=== PATIENT | male | born 1960 | race Caucasian/White ===

== ENCOUNTER 2016-09-01 10:34 | Inpatient (IN) | payer OTHER ==
[~2016-09-01] VITALS: Ht 177.8 cm; Wt 87.5 kg
[2016-09-01 18:30] VITALS: BP 123/90
[2016-09-01] MEDS ORDERED: HYDROCODONE/ACETAMINOPHEN 5-325 MG TABLET PO PRN (19:00)
[2016-09-01] MEDS ORDERED: ACETAMINOPHEN 325 MG TABLET PO PRN (19:00)
[2016-09-01] MEDS ORDERED: ONDANSETRON HCL 4 MG TABLET PO PRN (19:00)
[2016-09-01] MEDS ORDERED: DOCUSATE SODIUM 283 MG/5 ML MINI-ENEMA PR PRN (19:00)
[2016-09-01 19:02] VITALS: BP 123/90
[2016-09-01 22:00] VITALS: BP 113/61
[2016-09-01] MEDS: DOCUSATE SODIUM 100 MG CAPSULE PO SCH (22:02)
[2016-09-01] MEDS: ROSUVASTATIN CALCIUM 10 MG TABLET PO SCH (22:02)
[2016-09-01] MEDS: SENNA 187 MG TABLET PO SCH (22:02)
[2016-09-01] MEDS: HYDROCODONE/ACETAMINOPHEN 5-325 MG TABLET PO PRN (22:03)
[2016-09-01] MEDS: TraZODone HCL 50 MG TABLET PO SCH (22:03)
[2016-09-01] MEDS: FAMOTIDINE 20 MG TABLET PO SCH (22:03)
[2016-09-01] MEDS: METOPROLOL TARTRATE 25 MG TABLET PO SCH (22:03)
[2016-09-01] MEDS: DEXAMETHASONE 4 MG TABLET PO SCH (23:45)
[2016-09-01 23:59] VITALS: BP 136/84
[2016-09-02 02:50] LABS: APPEARANCE,URINE CLEAR (CLEAR); GLUCOSE, URINE (UA) NEGATIVE (NEGATIVE); KETONES,URINE NEGATIVE (NEGATIVE); LEUKOCYTE ESTERASE ,URINE NEGATIVE (NEGATIVE); OCCULT BLOOD,URINE NEGATIVE (NEGATIVE); PH,URINE 5.5 (5.0-8.0); PROTEIN,URINE NEGATIVE (NEGATIVE)
[2016-09-02 03:02] LABS: RBC,URINE None Seen /HPF (0-2); WBC,URINE None Seen /HPF (0-5)
[2016-09-02] MEDS: DEXAMETHASONE 4 MG TABLET PO SCH ×4 (05:43→23:45)
[2016-09-02 07:00] LABS: EOSINOPHILS % (AUTO) 0.01 % (1.0-6.0); HEMATOCRIT 32.1 % (41-53); HEMOGLOBIN 10.6 g/dL (13.5-17.5); LYMPHOCYTES # (AUTO) 0.5 K/uL (1.0-4.8); LYMPHOCYTES % (AUTO) 5.4 % (22.0-44.0); MEAN CORPUSCULAR HEMOGLOBIN 33.4 pg (26.0-34.0); MEAN CORPUSCULAR VOLUME 101 fL (80-100); MONOCYTES # (AUTO) 0.3 K/uL (0.1-1.0); MONOCYTES % (AUTO) 3.1 % (2.0-9.0); NEUTROPHILS # (AUTO) 9.2 K/uL (1.8-7.7); PLATELET COUNT (AUTO) 186 K/uL (150-450); RED BLOOD CELL COUNT(AUTO) 3.17 MIL/uL (4.50-5.90); RED CELL DISTRIBUTION WIDTH 14.1 % (11.5-14.5); WHITE BLOOD COUNT (AUTO) 10.1 K/uL (4.5-11.0)
[2016-09-02 07:17] LABS: ALANINE AMINOTRANSFERASE 45 U/L (12-78); ALBUMIN 2.5 g/dL (3.4-5.0); ANION GAP 6 mmol/L (8-16); ASPARTATE AMINOTRANSFERASE 18 U/L (15-37); BILIRUBIN,TOTAL 0.5 mg/dL (0.1-1.0); CARBON DIOXIDE 31 mmol/L (22-29); CHLORIDE 103 mmol/L (98-107); CREATININE 0.87 mg/dL (0.60-1.30); GLOMERULAR FILTR. RATE CALC > 60 mL/min (>60); POTASSIUM 4.5 mmol/L (3.5-5.1); SODIUM SERUM 140 mmol/L (136-145); TOTAL PROTEIN, SERUM 5.5 g/dL (6.4-8.2); UREA NITROGEN, BLOOD 23 mg/dL (7-18)
[2016-09-02 07:25] VITALS: BP 128/80
[2016-09-02 07:25] LABS: NEUTROPHILS % (AUTO) 91.6 % (40.0-70.0); RBC MORPHOLOGY COMMENT ABNORMAL RBC MORPH
[2016-09-02] MEDS: METOPROLOL TARTRATE 25 MG TABLET PO SCH ×2 (08:37→20:25)
[2016-09-02] MEDS: BuPROPion HCL XL 150 MG ER TABLET PO SCH (08:37)
[2016-09-02] MEDS: LISINOPRIL 5 MG TABLET PO SCH (08:37)
[2016-09-02] MEDS: DOCUSATE SODIUM 100 MG CAPSULE PO SCH ×2 (08:37→20:24)
[2016-09-02] MEDS: FLUoxetine HCL 20 MG CAPSULE PO SCH (08:37)
[2016-09-02 15:00] VITALS: BP 120/73
[2016-09-02] MEDS: HYDROCODONE/ACETAMINOPHEN 5-325 MG TABLET PO PRN ×2 (15:06→23:45)
[2016-09-02 20:10] VITALS: BP 141/94
[2016-09-02] MEDS: ROSUVASTATIN CALCIUM 10 MG TABLET PO SCH (20:23)
[2016-09-02] MEDS: TraZODone HCL 50 MG TABLET PO SCH (20:24)
[2016-09-02] MEDS: FAMOTIDINE 20 MG TABLET PO SCH (20:24)
[2016-09-02] MEDS: SENNA 187 MG TABLET PO SCH (20:24)
[2016-09-02 23:45] VITALS: BP 129/85
[2016-09-03] MEDS: HYDROCODONE/ACETAMINOPHEN 5-325 MG TABLET PO PRN ×4 (05:22→23:55)
[2016-09-03] MEDS: DEXAMETHASONE 4 MG TABLET PO SCH ×4 (05:52→23:52)
[2016-09-03 07:40] VITALS: BP 144/73
[2016-09-03] MEDS: DOCUSATE SODIUM 100 MG CAPSULE PO SCH ×2 (08:18→20:07)
[2016-09-03] MEDS: METOPROLOL TARTRATE 25 MG TABLET PO SCH ×2 (08:18→20:07)
[2016-09-03] MEDS: LISINOPRIL 5 MG TABLET PO SCH (08:18)
[2016-09-03] MEDS: FLUoxetine HCL 20 MG CAPSULE PO SCH (08:18)
[2016-09-03] MEDS: BuPROPion HCL XL 150 MG ER TABLET PO SCH (08:18)
[2016-09-03 15:21] VITALS: BP 145/86
[2016-09-03] MEDS: FAMOTIDINE 20 MG TABLET PO SCH (20:07)
[2016-09-03] MEDS: ROSUVASTATIN CALCIUM 10 MG TABLET PO SCH (20:07)
[2016-09-03] MEDS: SENNA 187 MG TABLET PO SCH (20:07)
[2016-09-03 20:08] VITALS: BP 140/87
[2016-09-03 23:55] VITALS: BP 132/86
[2016-09-04] MEDS: HYDROCODONE/ACETAMINOPHEN 5-325 MG TABLET PO PRN ×2 (05:06→20:11)
[2016-09-04] MEDS: DEXAMETHASONE 4 MG TABLET PO SCH ×4 (05:42→23:53)
[2016-09-04 08:21] VITALS: BP 129/80
[2016-09-04 09:20] VITALS: BP 135/81
[2016-09-04] MEDS: DOCUSATE SODIUM 100 MG CAPSULE PO SCH ×2 (09:26→20:40)
[2016-09-04] MEDS: BuPROPion HCL XL 150 MG ER TABLET PO SCH (09:26)
[2016-09-04] MEDS: LISINOPRIL 5 MG TABLET PO SCH (09:26)
[2016-09-04] MEDS: FLUoxetine HCL 20 MG CAPSULE PO SCH (09:26)
[2016-09-04] MEDS: METOPROLOL TARTRATE 25 MG TABLET PO SCH ×2 (09:26→20:40)
[2016-09-04 16:07] VITALS: BP 129/82
[2016-09-04 20:11] VITALS: BP 112/78
[2016-09-04] MEDS: FAMOTIDINE 20 MG TABLET PO SCH (20:40)
[2016-09-04] MEDS: SENNA 187 MG TABLET PO SCH (20:40)
[2016-09-04] MEDS: ROSUVASTATIN CALCIUM 10 MG TABLET PO SCH (20:40)
[2016-09-05 00:09] VITALS: BP 122/89
[2016-09-05] MEDS: HYDROCODONE/ACETAMINOPHEN 5-325 MG TABLET PO PRN ×4 (00:09→20:26)
[2016-09-05] MEDS ORDERED: BUPR-93 PO (04:11)
[2016-09-05] MEDS ORDERED: ROSU20 PO (04:11)
[2016-09-05] MEDS ORDERED: LISI-662 PO (04:11)
[2016-09-05] MEDS ORDERED: FLUO-191 PO (04:11)
[2016-09-05] MEDS ORDERED: OMEG-12 PO (04:11)
[2016-09-05] MEDS ORDERED: ASA3 PO (04:11)
[2016-09-05] MEDS ORDERED: VITAD1000 PO (04:11)
[2016-09-05] MEDS ORDERED: FOLI1 PO (04:11)
[2016-09-05] MEDS ORDERED: METO25 PO (04:11)
[2016-09-05] MEDS ORDERED: NITR.4 SL (04:11)
[2016-09-05] MEDS ORDERED: LORA0.5T2 PO (04:11)
[2016-09-05] MEDS: DEXAMETHASONE 4 MG TABLET PO SCH ×3 (05:53→20:23)
[2016-09-05 07:00] VITALS: BP 148/93
[2016-09-05] MEDS: DOCUSATE SODIUM 100 MG CAPSULE PO SCH ×2 (08:09→20:22)
[2016-09-05] MEDS: METOPROLOL TARTRATE 25 MG TABLET PO SCH ×2 (08:09→20:22)
[2016-09-05] MEDS: LISINOPRIL 5 MG TABLET PO SCH (08:09)
[2016-09-05] MEDS: BuPROPion HCL XL 150 MG ER TABLET PO SCH (08:09)
[2016-09-05] MEDS: FLUoxetine HCL 20 MG CAPSULE PO SCH (08:09)
[2016-09-05 08:10] VITALS: BP 144/87
[2016-09-05 15:38] VITALS: BP 143/86
[2016-09-05] MEDS: GABAPENTIN 300 MG CAPSULE PO SCH (20:22)
[2016-09-05] MEDS: FAMOTIDINE 20 MG TABLET PO SCH (20:22)
[2016-09-05] MEDS: ROSUVASTATIN CALCIUM 10 MG TABLET PO SCH (20:22)
[2016-09-05] MEDS: SENNA 187 MG TABLET PO SCH (20:22)
[2016-09-05 23:22] VITALS: BP 118/77
[2016-09-06] MEDS: HYDROCODONE/ACETAMINOPHEN 5-325 MG TABLET PO PRN ×3 (05:27→23:30)
[2016-09-06 08:00] VITALS: BP 152/99
[2016-09-06] MEDS: BuPROPion HCL XL 150 MG ER TABLET PO SCH (08:47)
[2016-09-06] MEDS: METOPROLOL TARTRATE 25 MG TABLET PO SCH ×2 (08:47→20:15)
[2016-09-06] MEDS: DOCUSATE SODIUM 100 MG CAPSULE PO SCH ×2 (08:47→20:15)
[2016-09-06] MEDS: FLUoxetine HCL 20 MG CAPSULE PO SCH (08:47)
[2016-09-06] MEDS: DEXAMETHASONE 4 MG TABLET PO SCH ×3 (08:47→20:15)
[2016-09-06] MEDS: LISINOPRIL 5 MG TABLET PO SCH (08:47)
[2016-09-06] MEDS: ENOXAPARIN SODIUM 30 MG/0.3 ML PF SYRINGE SQ SCH (11:01)
[2016-09-06 15:13] VITALS: BP 122/72
[2016-09-06] MEDS: FAMOTIDINE 20 MG TABLET PO SCH (20:14)
[2016-09-06] MEDS: SENNA 187 MG TABLET PO SCH (20:15)
[2016-09-06] MEDS: ROSUVASTATIN CALCIUM 10 MG TABLET PO SCH (20:15)
[2016-09-06] MEDS: GABAPENTIN 300 MG CAPSULE PO SCH (20:15)
[2016-09-06 20:26] VITALS: BP 135/80
[2016-09-06 23:30] VITALS: BP 131/83
[2016-09-07] MEDS: HYDROCODONE/ACETAMINOPHEN 5-325 MG TABLET PO PRN ×2 (04:49→21:16)
[2016-09-07 07:13] VITALS: BP 137/81
[2016-09-07] MEDS: ENOXAPARIN SODIUM 30 MG/0.3 ML PF SYRINGE SQ SCH (07:51)
[2016-09-07] MEDS: DOCUSATE SODIUM 100 MG CAPSULE PO SCH ×2 (07:52→21:15)
[2016-09-07] MEDS: BuPROPion HCL XL 150 MG ER TABLET PO SCH (07:52)
[2016-09-07] MEDS: METOPROLOL TARTRATE 25 MG TABLET PO SCH ×2 (07:52→21:14)
[2016-09-07] MEDS: DEXAMETHASONE 4 MG TABLET PO SCH ×2 (07:52→21:13)
[2016-09-07] MEDS: FLUoxetine HCL 20 MG CAPSULE PO SCH (07:52)
[2016-09-07] MEDS: LISINOPRIL 5 MG TABLET PO SCH (07:52)
[2016-09-07 15:30] VITALS: BP 133/76
[2016-09-07] MEDS: GABAPENTIN 300 MG CAPSULE PO SCH (21:14)
[2016-09-07] MEDS: ROSUVASTATIN CALCIUM 10 MG TABLET PO SCH (21:14)
[2016-09-07 21:15] VITALS: BP_SYST 121; BP_DIAS 7; BP_DIAS 72
[2016-09-07] MEDS: FAMOTIDINE 20 MG TABLET PO SCH (21:15)
[2016-09-07] MEDS: SENNA 187 MG TABLET PO SCH (21:15)
[2016-09-07 23:44] VITALS: BP 124/74
[2016-09-08 07:09] VITALS: BP 138/79
[2016-09-08] MEDS ORDERED: DEXAMETHASONE 4 MG TABLET PO SCH (09:00)
[2016-09-08] MEDS: BuPROPion HCL XL 150 MG ER TABLET PO SCH (09:03)
[2016-09-08] MEDS: FLUoxetine HCL 20 MG CAPSULE PO SCH (09:03)
[2016-09-08] MEDS: METOPROLOL TARTRATE 25 MG TABLET PO SCH ×2 (09:03→20:53)
[2016-09-08] MEDS: DOCUSATE SODIUM 100 MG CAPSULE PO SCH ×2 (09:03→20:53)
[2016-09-08] MEDS: ENOXAPARIN SODIUM 30 MG/0.3 ML PF SYRINGE SQ SCH (09:03)
[2016-09-08] MEDS: LISINOPRIL 5 MG TABLET PO SCH (09:03)
[2016-09-08 15:51] VITALS: BP 122/78
[2016-09-08] MEDS: HYDROCODONE/ACETAMINOPHEN 5-325 MG TABLET PO PRN (16:04)
[2016-09-08 20:52] VITALS: BP 134/87
[2016-09-08] MEDS: GABAPENTIN 300 MG CAPSULE PO SCH (20:53)
[2016-09-08] MEDS: ROSUVASTATIN CALCIUM 10 MG TABLET PO SCH (20:53)
[2016-09-08] MEDS: SENNA 187 MG TABLET PO SCH (20:53)
[2016-09-08] MEDS: FAMOTIDINE 20 MG TABLET PO SCH (20:53)
[2016-09-09 00:16] VITALS: BP 125/72
[2016-09-09] MEDS: HYDROCODONE/ACETAMINOPHEN 5-325 MG TABLET PO PRN ×3 (04:29→19:13)
[2016-09-09 07:03] VITALS: BP 149/88
[2016-09-09] MEDS: ENOXAPARIN SODIUM 30 MG/0.3 ML PF SYRINGE SQ SCH (08:11)
[2016-09-09] MEDS: BuPROPion HCL XL 150 MG ER TABLET PO SCH (08:11)
[2016-09-09] MEDS: DOCUSATE SODIUM 100 MG CAPSULE PO SCH ×2 (08:12→20:46)
[2016-09-09] MEDS: METOPROLOL TARTRATE 25 MG TABLET PO SCH ×2 (08:12→20:46)
[2016-09-09] MEDS: FLUoxetine HCL 20 MG CAPSULE PO SCH (08:12)
[2016-09-09] MEDS: LISINOPRIL 5 MG TABLET PO SCH (08:12)
[2016-09-09 15:20] VITALS: BP 100/62
[2016-09-09 20:45] VITALS: BP 120/62
[2016-09-09] MEDS: ROSUVASTATIN CALCIUM 10 MG TABLET PO SCH (20:46)
[2016-09-09] MEDS: GABAPENTIN 300 MG CAPSULE PO SCH (20:46)
[2016-09-09] MEDS: FAMOTIDINE 20 MG TABLET PO SCH (20:46)
[2016-09-09] MEDS: SENNA 187 MG TABLET PO SCH (20:46)
[2016-09-09 23:47] VITALS: BP 114/72
[2016-09-10 08:14] VITALS: BP 118/80
[2016-09-10] MEDS: HYDROCODONE/ACETAMINOPHEN 5-325 MG TABLET PO PRN ×2 (08:14→20:20)
[2016-09-10] MEDS: ENOXAPARIN SODIUM 30 MG/0.3 ML PF SYRINGE SQ SCH (08:15)
[2016-09-10] MEDS: FLUoxetine HCL 20 MG CAPSULE PO SCH (08:15)
[2016-09-10] MEDS: LISINOPRIL 5 MG TABLET PO SCH (08:15)
[2016-09-10] MEDS: BuPROPion HCL XL 150 MG ER TABLET PO SCH (08:15)
[2016-09-10] MEDS: METOPROLOL TARTRATE 25 MG TABLET PO SCH ×2 (08:15→20:16)
[2016-09-10] MEDS: DOCUSATE SODIUM 100 MG CAPSULE PO SCH ×2 (08:15→20:16)
[2016-09-10 08:41] VITALS: BP 118/80
[2016-09-10 16:01] VITALS: BP 101/63
[2016-09-10] MEDS: ROSUVASTATIN CALCIUM 10 MG TABLET PO SCH (20:15)
[2016-09-10] MEDS: FAMOTIDINE 20 MG TABLET PO SCH (20:16)
[2016-09-10] MEDS: GABAPENTIN 300 MG CAPSULE PO SCH (20:16)
[2016-09-10] MEDS: SENNA 187 MG TABLET PO SCH (20:16)
[2016-09-10 20:20] VITALS: BP 118/68
[2016-09-10 23:39] VITALS: BP 103/63
[2016-09-11 07:00] VITALS: BP 103/66
[2016-09-11] MEDS: LISINOPRIL 5 MG TABLET PO SCH (08:30)
[2016-09-11] MEDS: BuPROPion HCL XL 150 MG ER TABLET PO SCH (08:30)
[2016-09-11] MEDS: FLUoxetine HCL 20 MG CAPSULE PO SCH (08:30)
[2016-09-11] MEDS: ENOXAPARIN SODIUM 30 MG/0.3 ML PF SYRINGE SQ SCH (08:30)
[2016-09-11] MEDS: DOCUSATE SODIUM 100 MG CAPSULE PO SCH ×2 (08:30→21:01)
[2016-09-11] MEDS: METOPROLOL TARTRATE 25 MG TABLET PO SCH ×2 (08:31→21:01)
[2016-09-11 16:22] VITALS: BP 132/83
[2016-09-11 21:00] VITALS: BP 112/72
[2016-09-11] MEDS: HYDROCODONE/ACETAMINOPHEN 5-325 MG TABLET PO PRN (21:01)
[2016-09-11] MEDS: SENNA 187 MG TABLET PO SCH (21:01)
[2016-09-11] MEDS: GABAPENTIN 300 MG CAPSULE PO SCH (21:01)
[2016-09-11] MEDS: ROSUVASTATIN CALCIUM 10 MG TABLET PO SCH (21:01)
[2016-09-11] MEDS: FAMOTIDINE 20 MG TABLET PO SCH (21:01)
[2016-09-12 00:14] VITALS: BP 115/75
[2016-09-12] MEDS: ENOXAPARIN SODIUM 30 MG/0.3 ML PF SYRINGE SQ SCH (07:46)
[2016-09-12] MEDS: DOCUSATE SODIUM 100 MG CAPSULE PO SCH ×2 (07:47→20:12)
[2016-09-12] MEDS: BuPROPion HCL XL 150 MG ER TABLET PO SCH (07:47)
[2016-09-12] MEDS: FLUoxetine HCL 20 MG CAPSULE PO SCH (07:47)
[2016-09-12] MEDS: LISINOPRIL 5 MG TABLET PO SCH (07:47)
[2016-09-12] MEDS: METOPROLOL TARTRATE 25 MG TABLET PO SCH ×2 (07:47→20:12)
[2016-09-12 07:48] VITALS: BP 116/65
[2016-09-12] MEDS: HYDROCODONE/ACETAMINOPHEN 5-325 MG TABLET PO PRN ×3 (07:48→20:14)
[2016-09-12 15:38] VITALS: BP 108/57
[2016-09-12 20:10] VITALS: BP 108/69
[2016-09-12] MEDS: SENNA 187 MG TABLET PO SCH (20:11)
[2016-09-12] MEDS: FAMOTIDINE 20 MG TABLET PO SCH (20:12)
[2016-09-12] MEDS: ROSUVASTATIN CALCIUM 10 MG TABLET PO SCH (20:12)
[2016-09-12] MEDS: GABAPENTIN 300 MG CAPSULE PO SCH (20:13)
[2016-09-13 00:52] VITALS: BP 127/56
[2016-09-13 07:09] VITALS: BP 110/67
[2016-09-13 07:10] LABS: BASOPHILS % (AUTO) 0.3 % (0.0-2.0); EOSINOPHILS % (AUTO) 0.4 % (1.0-6.0); HEMATOCRIT 31.4 % (41-53); HEMOGLOBIN 10.4 g/dL (13.5-17.5); LYMPHOCYTES # (AUTO) 0.8 K/uL (1.0-4.8); LYMPHOCYTES % (AUTO) 11.6 % (22.0-44.0); MEAN CORPUSCULAR HEMOGLOBIN 33.3 pg (26.0-34.0); MEAN CORPUSCULAR HGB CONC 33.1 G/dL (31.0-37.0); MEAN CORPUSCULAR VOLUME 101 fL (80-100); MONOCYTES # (AUTO) 0.5 K/uL (0.1-1.0); NEUTROPHILS # (AUTO) 5.4 K/uL (1.8-7.7); NEUTROPHILS % (AUTO) 79.7 % (40.0-70.0); PLATELET COUNT (AUTO) 233 K/uL (150-450); RED BLOOD CELL COUNT(AUTO) 3.12 MIL/uL (4.50-5.90); WHITE BLOOD COUNT (AUTO) 6.8 K/uL (4.5-11.0)
[2016-09-13 07:17] LABS: ANION GAP 7 mmol/L (8-16); CALCIUM, TOTAL 8.2 mg/dL (8.8-10.5); CARBON DIOXIDE 30 mmol/L (22-29); CHLORIDE 98 mmol/L (98-107); CREATININE 0.77 mg/dL (0.60-1.30); GLOMERULAR FILTR. RATE CALC > 60 mL/min (>60); POTASSIUM 4.2 mmol/L (3.5-5.1); SODIUM SERUM 135 mmol/L (136-145); UREA NITROGEN, BLOOD 14 mg/dL (7-18)
[2016-09-13] MEDS: LISINOPRIL 5 MG TABLET PO SCH (08:01)
[2016-09-13] MEDS: DOCUSATE SODIUM 100 MG CAPSULE PO SCH ×2 (08:01→20:29)
[2016-09-13] MEDS: FLUoxetine HCL 20 MG CAPSULE PO SCH (08:02)
[2016-09-13] MEDS: METOPROLOL TARTRATE 25 MG TABLET PO SCH ×2 (08:02→20:29)
[2016-09-13] MEDS: ENOXAPARIN SODIUM 30 MG/0.3 ML PF SYRINGE SQ SCH (08:02)
[2016-09-13] MEDS: BuPROPion HCL XL 150 MG ER TABLET PO SCH (08:02)
[2016-09-13 09:50] LABS: RBC MORPHOLOGY COMMENT ABNORMAL RBC MORPH
[2016-09-13 15:53] VITALS: BP 112/57
[2016-09-13] MEDS: FAMOTIDINE 20 MG TABLET PO SCH (20:28)
[2016-09-13] MEDS: GABAPENTIN 300 MG CAPSULE PO SCH (20:28)
[2016-09-13] MEDS: ROSUVASTATIN CALCIUM 10 MG TABLET PO SCH (20:28)
[2016-09-13] MEDS: SENNA 187 MG TABLET PO SCH (20:28)
[2016-09-13 20:33] VITALS: BP 103/59
[2016-09-13 23:32] VITALS: BP 98/54
[2016-09-14] MEDS ORDERED: DSS100 PO (03:14)
[2016-09-14] MEDS ORDERED: LISI-660 PO (03:22)
[2016-09-14] MEDS ORDERED: HYDR-309 PO (03:22)
[2016-09-14] MEDS ORDERED: GABA-531 PO (03:22)
[2016-09-14] MEDS ORDERED: ROSU10 PO (03:22)
[2016-09-14] MEDS ORDERED: FAMO20 PO (03:22)
[2016-09-14 04:00] VITALS: BP 113/76
[2016-09-14] MEDS: DOCUSATE SODIUM 100 MG CAPSULE PO SCH ×2 (08:02→21:27)
[2016-09-14] MEDS: LISINOPRIL 5 MG TABLET PO SCH (08:02)
[2016-09-14] MEDS: ENOXAPARIN SODIUM 30 MG/0.3 ML PF SYRINGE SQ SCH (08:02)
[2016-09-14] MEDS: METOPROLOL TARTRATE 25 MG TABLET PO SCH ×2 (08:02→21:26)
[2016-09-14] MEDS: FLUoxetine HCL 20 MG CAPSULE PO SCH (08:02)
[2016-09-14] MEDS: BuPROPion HCL XL 150 MG ER TABLET PO SCH (08:02)
[2016-09-14 09:38] VITALS: BP 112/68
[2016-09-14 15:15] VITALS: BP 100/63
[2016-09-14] MEDS: GABAPENTIN 300 MG CAPSULE PO SCH (21:26)
[2016-09-14] MEDS: ROSUVASTATIN CALCIUM 10 MG TABLET PO SCH (21:26)
[2016-09-14] MEDS: FAMOTIDINE 20 MG TABLET PO SCH (21:26)
[2016-09-14] MEDS: SENNA 187 MG TABLET PO SCH (21:26)
[2016-09-14 21:27] VITALS: BP 114/63
[2016-09-14 23:54] VITALS: BP 109/62
[2016-09-15 07:25] VITALS: BP 103/69
[2016-09-15] MEDS: LISINOPRIL 5 MG TABLET PO SCH (08:36)
[2016-09-15] MEDS: DOCUSATE SODIUM 100 MG CAPSULE PO SCH (08:36)
[2016-09-15] MEDS: BuPROPion HCL XL 150 MG ER TABLET PO SCH (08:36)
[2016-09-15] MEDS: FLUoxetine HCL 20 MG CAPSULE PO SCH (08:37)
[2016-09-15] MEDS: METOPROLOL TARTRATE 25 MG TABLET PO SCH (08:37)
[2016-09-15] MEDS: ENOXAPARIN SODIUM 30 MG/0.3 ML PF SYRINGE SQ SCH (08:37)
[2016-09-15] MEDS ORDERED: ENOX30DI5 SQ (11:28)
[2016-09-15 15:00] VITALS: BP 110/62
== END 2016-09-15 17:30 | disposition home or self-care (01) | DRG 552 ==
LOC: 2WR 18:22
DX: M50.021 Cervical disc disorder at C4-C5 level with myelopathy (principal); G95.9 Disease of spinal cord, unspecified; E44.0 Moderate protein-calorie malnutrition; M48.02 Spinal stenosis, cervical region; G51.0 Bell's palsy; F32.9 Major depressive disorder, single episode, unspecified; I10 Essential (primary) hypertension; I25.10 Atherosclerotic heart disease of native coronary artery without angina pectoris; M54.10 Radiculopathy, site unspecified; D64.9 Anemia, unspecified; M62.58 Muscle wasting and atrophy, not elsewhere classified, other site; Z79.899 Other long term (current) drug therapy; Z82.49 Family history of ischemic heart disease and other diseases of the circulatory system
CPT/HCPCS: 71020; 87070; 87081; 87147; 87205; 93970; 97110; 97112; 97116; 97163; 97167; 97530; 97535; 97760; 99366; J1650; J8540

== ENCOUNTER 2016-11-30 17:15 | Inpatient (IN) | payer OTHER ==
[~2016-11-30] VITALS: Ht 175.3 cm; Wt 77.1 kg
[~2016-11-30 17:15] MED LIST: ASA3 PO; AUD NEB; BISA10S PR; BUPR-93 PO; CHOL20004 PO; DSS100 PO; ENOX30DI5 SQ; FAMO20 PO; FLUO-191 PO; FOLI1 PO; GABA-531 PO; HYDR-309 PO; IPRNEB NEB; LISI-660 PO; LORA0.5T2 PO; METH125V14 IVP; METO25 PO; MOM30 PO; MORP2CAR IV; OMEG-112 PO; ONDA4 PO; PANT40I IV; ROSU10 PO
[2016-11-30 17:30] VITALS: BP 121/66
[2016-11-30] MEDS ORDERED: ONDANSETRON HCL 4 MG TABLET PO PRN (18:45)
[2016-11-30] MEDS ORDERED: ALBUTEROL SULFATE 2.5 MG/0.5 ML NEB SOLUTION NEB PRN (18:45)
[2016-11-30] MEDS ORDERED: ACETAMINOPHEN 325 MG TABLET PO PRN ×2 (18:45)
[2016-11-30] MEDS ORDERED: MORPHINE SULFATE 4 MG/ML SYRINGE IVP PRN (18:45)
[2016-11-30] MEDS ORDERED: DOCUSATE SODIUM 283 MG/5 ML MINI-ENEMA PR PRN (18:45)
[2016-11-30] MEDS ORDERED: BISACODYL 10 MG RECTAL RECTAL SUPPOSITORY PR PRN (18:45)
[2016-11-30] MEDS ORDERED: IPRATROPIUM BROMIDE 0.5 MG/2.5 ML NEB SOLUTION NEB PRN (18:45)
[2016-11-30] MEDS ORDERED: TEMAZEPAM 15 MG CAPSULE PO PRN (18:45)
[2016-11-30] MEDS ORDERED: LORazepam 0.5 MG TABLET PO PRN (18:45)
[2016-11-30] MEDS ORDERED: MAGNESIUM HYDROXIDE SUSPENSION 30 ML UDCUP PO PRN (18:45)
[2016-11-30] MEDS ORDERED: LACTULOSE 20 GM/30 ML SOLUTION UDCUP PO PRN (19:00)
[2016-11-30 20:05] LABS: APPEARANCE,URINE CLEAR (CLEAR); GLUCOSE, URINE (UA) NEGATIVE (NEGATIVE); KETONES,URINE NEGATIVE (NEGATIVE); LEUKOCYTE ESTERASE ,URINE NEGATIVE (NEGATIVE); OCCULT BLOOD,URINE NEGATIVE (NEGATIVE); PROTEIN,URINE NEGATIVE (NEGATIVE)
[2016-11-30 20:18] LABS: RBC,URINE None Seen /HPF (0-2); WBC,URINE 0-2 /HPF (0-5)
[2016-11-30 20:23] VITALS: BP 122/83
[2016-11-30 20:27] VITALS: BP 122/83
[2016-11-30] MEDS: DOCUSATE SODIUM 100 MG CAPSULE PO SCH (20:47)
[2016-11-30] MEDS: METOPROLOL TARTRATE 25 MG TABLET PO SCH (20:50)
[2016-11-30] MEDS: GABAPENTIN 300 MG CAPSULE PO SCH (20:50)
[2016-11-30] MEDS: SENNA 187 MG TABLET PO SCH (20:50)
[2016-11-30] MEDS: ROSUVASTATIN CALCIUM 10 MG TABLET PO SCH (20:50)
[2016-11-30] MEDS: FAMOTIDINE 20 MG TABLET PO SCH (20:50)
[2016-11-30] MEDS: BUDESONIDE 0.5 MG/2 ML NEB SOLUTION NEB SCH (22:14)
[2016-11-30] MEDS: 0.9% SODIUM CHLORIDE 10 ML SYRINGE IVP SCH (23:08)
[2016-11-30 23:36] VITALS: BP 126/81
[2016-12-01] VITALS: BP 126/81
[2016-12-01 06:48] LABS: BASOPHILS % (AUTO) 0.2 % (0.0-2.0); EOSINOPHILS % (AUTO) 0.2 % (1.0-6.0); HEMATOCRIT 32.8 % (41-53); HEMOGLOBIN 10.9 g/dL (13.5-17.5); LYMPHOCYTES # (AUTO) 3.9 K/uL (1.0-4.8); LYMPHOCYTES % (AUTO) 32.1 % (22.0-44.0); MEAN CORPUSCULAR HEMOGLOBIN 29.8 pg (26.0-34.0); MEAN CORPUSCULAR HGB CONC 33.1 G/dL (31.0-37.0); MEAN CORPUSCULAR VOLUME 90 fL (80-100); MONOCYTES % (AUTO) 8.5 % (2.0-9.0); NEUTROPHILS # (AUTO) 7.2 K/uL (1.8-7.7); PLATELET COUNT (AUTO) 409 K/uL (150-450); RED BLOOD CELL COUNT(AUTO) 3.65 MIL/uL (4.50-5.90); RED CELL DISTRIBUTION WIDTH 21.4 % (11.5-14.5); WHITE BLOOD COUNT (AUTO) 12.2 K/uL (4.5-11.0)
[2016-12-01 07:06] LABS: ALANINE AMINOTRANSFERASE 33 U/L (12-78); ALBUMIN 2.9 g/dL (3.4-5.0); ANION GAP 5 mmol/L (8-16); ASPARTATE AMINOTRANSFERASE 14 U/L (15-37); BILIRUBIN,TOTAL 0.2 mg/dL (0.1-1.0); CARBON DIOXIDE 32 mmol/L (22-29); CHLORIDE 102 mmol/L (98-107); GLOMERULAR FILTR. RATE CALC > 60 mL/min (>60); POTASSIUM 4.1 mmol/L (3.5-5.1); SODIUM SERUM 139 mmol/L (136-145); TOTAL PROTEIN, SERUM 5.7 g/dL (6.4-8.2); UREA NITROGEN, BLOOD 17 mg/dL (7-18)
[2016-12-01 07:11] VITALS: BP 113/69
[2016-12-01] MEDS: BUDESONIDE 0.5 MG/2 ML NEB SOLUTION NEB SCH ×2 (08:22→21:11)
[2016-12-01] MEDS: ENOXAPARIN SODIUM 30 MG/0.3 ML PF SYRINGE SQ SCH (08:30)
[2016-12-01] MEDS: FOLIC ACID 1 MG TABLET PO SCH (08:30)
[2016-12-01] MEDS: DOCUSATE SODIUM 100 MG CAPSULE PO SCH ×2 (08:30→20:11)
[2016-12-01] MEDS: BuPROPion HCL XL 150 MG ER TABLET PO SCH (08:30)
[2016-12-01] MEDS: 0.9% SODIUM CHLORIDE 10 ML SYRINGE IVP SCH ×3 (08:30→23:10)
[2016-12-01] MEDS: FLUoxetine HCL 20 MG CAPSULE PO SCH (08:31)
[2016-12-01] MEDS: LISINOPRIL 5 MG TABLET PO SCH (08:31)
[2016-12-01] MEDS: METOPROLOL TARTRATE 25 MG TABLET PO SCH ×2 (08:31→20:11)
[2016-12-01] MEDS: PANTOPRAZOLE SODIUM 40 MG DR TABLET PO SCH (08:31)
[2016-12-01] MEDS: PredniSONE 10 MG TABLET PO SCH (08:31)
[2016-12-01] MEDS: CHOLECALCIFEROL (VIT D3) 1,000 UNITS TABLET PO SCH (08:31)
[2016-12-01 09:10] LABS: RBC MORPHOLOGY COMMENT ABNORMAL RBC MORPH
[2016-12-01 15:29] VITALS: BP 117/75
[2016-12-01 20:01] VITALS: BP 107/63
[2016-12-01] MEDS: GABAPENTIN 300 MG CAPSULE PO SCH (20:11)
[2016-12-01] MEDS: SENNA 187 MG TABLET PO SCH (20:11)
[2016-12-01] MEDS: ROSUVASTATIN CALCIUM 10 MG TABLET PO SCH (20:11)
[2016-12-01] MEDS: FAMOTIDINE 20 MG TABLET PO SCH (20:11)
[2016-12-01] MEDS: OXYGEN THERAPY IH SCH (21:28)
[2016-12-01 23:20] VITALS: BP 114/68
[2016-12-02 07:05] VITALS: BP 118/72
[2016-12-02] MEDS: BUDESONIDE 0.5 MG/2 ML NEB SOLUTION NEB SCH ×2 (08:13→21:21)
[2016-12-02] MEDS: OXYGEN THERAPY IH SCH ×2 (08:15→21:14)
[2016-12-02] MEDS: DOCUSATE SODIUM 100 MG CAPSULE PO SCH ×2 (08:16→21:14)
[2016-12-02] MEDS: BuPROPion HCL XL 150 MG ER TABLET PO SCH (08:16)
[2016-12-02] MEDS: FOLIC ACID 1 MG TABLET PO SCH (08:16)
[2016-12-02] MEDS: FLUoxetine HCL 20 MG CAPSULE PO SCH (08:16)
[2016-12-02] MEDS: LISINOPRIL 5 MG TABLET PO SCH (08:16)
[2016-12-02] MEDS: CHOLECALCIFEROL (VIT D3) 1,000 UNITS TABLET PO SCH (08:16)
[2016-12-02] MEDS: PANTOPRAZOLE SODIUM 40 MG DR TABLET PO SCH (08:16)
[2016-12-02] MEDS: PredniSONE 10 MG TABLET PO SCH (08:16)
[2016-12-02] MEDS: 0.9% SODIUM CHLORIDE 10 ML SYRINGE IVP SCH ×3 (08:16→23:20)
[2016-12-02] MEDS: METOPROLOL TARTRATE 25 MG TABLET PO SCH ×2 (08:17→21:14)
[2016-12-02] MEDS: ENOXAPARIN SODIUM 30 MG/0.3 ML PF SYRINGE SQ SCH (08:17)
[2016-12-02 15:36] VITALS: BP 112/52
[2016-12-02 21:12] VITALS: BP 104/64
[2016-12-02] MEDS: FAMOTIDINE 20 MG TABLET PO SCH (21:14)
[2016-12-02] MEDS: SENNA 187 MG TABLET PO SCH (21:14)
[2016-12-02] MEDS: ROSUVASTATIN CALCIUM 10 MG TABLET PO SCH (21:14)
[2016-12-02] MEDS: GABAPENTIN 300 MG CAPSULE PO SCH (21:14)
[2016-12-02 23:47] VITALS: BP 103/71
[2016-12-03 07:39] VITALS: BP 117/77
[2016-12-03] MEDS: DOCUSATE SODIUM 100 MG CAPSULE PO SCH ×2 (07:59→20:46)
[2016-12-03] MEDS: METOPROLOL TARTRATE 25 MG TABLET PO SCH ×2 (07:59→20:45)
[2016-12-03] MEDS: LISINOPRIL 5 MG TABLET PO SCH (07:59)
[2016-12-03] MEDS: PredniSONE 10 MG TABLET PO SCH (07:59)
[2016-12-03] MEDS: FLUoxetine HCL 20 MG CAPSULE PO SCH (07:59)
[2016-12-03] MEDS: ENOXAPARIN SODIUM 30 MG/0.3 ML PF SYRINGE SQ SCH (08:00)
[2016-12-03] MEDS: PANTOPRAZOLE SODIUM 40 MG DR TABLET PO SCH (08:00)
[2016-12-03] MEDS: FOLIC ACID 1 MG TABLET PO SCH (08:00)
[2016-12-03] MEDS: BuPROPion HCL XL 150 MG ER TABLET PO SCH (08:00)
[2016-12-03] MEDS: OXYGEN THERAPY IH SCH ×2 (09:08→20:00)
[2016-12-03] MEDS: 0.9% SODIUM CHLORIDE 10 ML SYRINGE IVP SCH ×3 (09:09→23:22)
[2016-12-03] MEDS: BUDESONIDE 0.5 MG/2 ML NEB SOLUTION NEB SCH ×2 (09:17→21:15)
[2016-12-03] MEDS: CHOLECALCIFEROL (VIT D3) 1,000 UNITS TABLET PO SCH (10:20)
[2016-12-03 15:00] VITALS: BP 108/65
[2016-12-03] MEDS: GABAPENTIN 300 MG CAPSULE PO SCH (20:45)
[2016-12-03] MEDS: SENNA 187 MG TABLET PO SCH (20:45)
[2016-12-03] MEDS: FAMOTIDINE 20 MG TABLET PO SCH (20:45)
[2016-12-03] MEDS: ROSUVASTATIN CALCIUM 10 MG TABLET PO SCH (20:46)
[2016-12-03 23:25] VITALS: BP 116/75
[2016-12-04] MEDS: OXYGEN THERAPY IH SCH ×2 (07:26→20:34)
[2016-12-04] MEDS: BUDESONIDE 0.5 MG/2 ML NEB SOLUTION NEB SCH ×2 (07:27→21:57)
[2016-12-04 08:00] VITALS: BP 114/75
[2016-12-04] MEDS: ENOXAPARIN SODIUM 30 MG/0.3 ML PF SYRINGE SQ SCH (08:07)
[2016-12-04] MEDS: PredniSONE 10 MG TABLET PO SCH (08:07)
[2016-12-04] MEDS: LISINOPRIL 5 MG TABLET PO SCH (08:07)
[2016-12-04] MEDS: FOLIC ACID 1 MG TABLET PO SCH (08:07)
[2016-12-04] MEDS: FLUoxetine HCL 20 MG CAPSULE PO SCH (08:07)
[2016-12-04] MEDS: CHOLECALCIFEROL (VIT D3) 1,000 UNITS TABLET PO SCH (08:07)
[2016-12-04] MEDS: METOPROLOL TARTRATE 25 MG TABLET PO SCH ×2 (08:08→20:34)
[2016-12-04] MEDS: DOCUSATE SODIUM 100 MG CAPSULE PO SCH ×2 (08:08→20:34)
[2016-12-04] MEDS: PANTOPRAZOLE SODIUM 40 MG DR TABLET PO SCH (08:08)
[2016-12-04] MEDS: BuPROPion HCL XL 150 MG ER TABLET PO SCH (08:08)
[2016-12-04] MEDS: 0.9% SODIUM CHLORIDE 10 ML SYRINGE IVP SCH ×3 (11:46→23:16)
[2016-12-04 15:37] VITALS: BP 113/67
[2016-12-04 20:33] VITALS: BP 130/72
[2016-12-04] MEDS: GABAPENTIN 300 MG CAPSULE PO SCH (20:34)
[2016-12-04] MEDS: SENNA 187 MG TABLET PO SCH (20:34)
[2016-12-04] MEDS: ROSUVASTATIN CALCIUM 10 MG TABLET PO SCH (20:34)
[2016-12-04] MEDS: FAMOTIDINE 20 MG TABLET PO SCH (20:34)
[2016-12-04 23:45] VITALS: BP 111/76
[2016-12-05] MEDS: BUDESONIDE 0.5 MG/2 ML NEB SOLUTION NEB SCH ×2 (07:35→21:16)
[2016-12-05 07:38] VITALS: BP 120/90
[2016-12-05] MEDS: OXYGEN THERAPY IH SCH ×2 (08:00→20:00)
[2016-12-05] MEDS: 0.9% SODIUM CHLORIDE 10 ML SYRINGE IVP SCH ×3 (09:26→23:12)
[2016-12-05] MEDS: DOCUSATE SODIUM 100 MG CAPSULE PO SCH ×2 (09:27→20:23)
[2016-12-05] MEDS: PANTOPRAZOLE SODIUM 40 MG DR TABLET PO SCH (09:27)
[2016-12-05] MEDS: PredniSONE 10 MG TABLET PO SCH (09:27)
[2016-12-05] MEDS: LISINOPRIL 5 MG TABLET PO SCH (09:27)
[2016-12-05] MEDS: CHOLECALCIFEROL (VIT D3) 1,000 UNITS TABLET PO SCH (09:27)
[2016-12-05] MEDS: BuPROPion HCL XL 150 MG ER TABLET PO SCH (09:27)
[2016-12-05] MEDS: METOPROLOL TARTRATE 25 MG TABLET PO SCH ×2 (09:27→20:23)
[2016-12-05] MEDS: ENOXAPARIN SODIUM 30 MG/0.3 ML PF SYRINGE SQ SCH (09:27)
[2016-12-05] MEDS: FOLIC ACID 1 MG TABLET PO SCH (09:27)
[2016-12-05] MEDS: FLUoxetine HCL 20 MG CAPSULE PO SCH (09:27)
[2016-12-05 16:18] VITALS: BP 103/68
[2016-12-05 20:21] VITALS: BP 118/69
[2016-12-05] MEDS: SENNA 187 MG TABLET PO SCH (20:23)
[2016-12-05] MEDS: FAMOTIDINE 20 MG TABLET PO SCH (20:23)
[2016-12-05] MEDS: ROSUVASTATIN CALCIUM 10 MG TABLET PO SCH (20:23)
[2016-12-05] MEDS: GABAPENTIN 300 MG CAPSULE PO SCH (20:23)
[2016-12-05] MEDS: ASPIRIN 325 MG EC TABLET PO SCH (20:23)
[2016-12-05 23:15] VITALS: BP 122/82
[2016-12-06] MEDS: BUDESONIDE 0.5 MG/2 ML NEB SOLUTION NEB SCH ×2 (07:00→20:15)
[2016-12-06 07:25] VITALS: BP 126/85
[2016-12-06] MEDS: OXYGEN THERAPY IH SCH ×2 (08:00→20:00)
[2016-12-06] MEDS: PredniSONE 10 MG TABLET PO SCH (08:01)
[2016-12-06] MEDS: DOCUSATE SODIUM 100 MG CAPSULE PO SCH ×2 (08:01→20:11)
[2016-12-06] MEDS: CHOLECALCIFEROL (VIT D3) 1,000 UNITS TABLET PO SCH (08:02)
[2016-12-06] MEDS: METOPROLOL TARTRATE 25 MG TABLET PO SCH ×2 (08:02→20:11)
[2016-12-06] MEDS: PANTOPRAZOLE SODIUM 40 MG DR TABLET PO SCH (08:02)
[2016-12-06] MEDS: FLUoxetine HCL 20 MG CAPSULE PO SCH (08:02)
[2016-12-06] MEDS: FOLIC ACID 1 MG TABLET PO SCH (08:02)
[2016-12-06] MEDS: BuPROPion HCL XL 150 MG ER TABLET PO SCH (08:03)
[2016-12-06] MEDS: LISINOPRIL 5 MG TABLET PO SCH (08:03)
[2016-12-06] MEDS: ENOXAPARIN SODIUM 30 MG/0.3 ML PF SYRINGE SQ SCH (08:03)
[2016-12-06] MEDS: 0.9% SODIUM CHLORIDE 10 ML SYRINGE IVP SCH ×3 (08:06→23:09)
[2016-12-06 15:04] VITALS: BP 109/69
[2016-12-06] MEDS: GABAPENTIN 300 MG CAPSULE PO SCH (20:10)
[2016-12-06] MEDS: ASPIRIN 325 MG EC TABLET PO SCH (20:11)
[2016-12-06] MEDS: FAMOTIDINE 20 MG TABLET PO SCH (20:11)
[2016-12-06] MEDS: SENNA 187 MG TABLET PO SCH (20:11)
[2016-12-06] MEDS: ROSUVASTATIN CALCIUM 10 MG TABLET PO SCH (20:11)
[2016-12-06 23:13] VITALS: BP 121/75
[2016-12-07 07:04] LABS: BASOPHILS % (AUTO) 0.2 % (0.0-2.0); EOSINOPHILS % (AUTO) 0.2 % (1.0-6.0); HEMATOCRIT 31.9 % (41-53); HEMOGLOBIN 10.6 g/dL (13.5-17.5); LYMPHOCYTES # (AUTO) 4.4 K/uL (1.0-4.8); MEAN CORPUSCULAR HEMOGLOBIN 30.1 pg (26.0-34.0); MEAN CORPUSCULAR HGB CONC 33.2 G/dL (31.0-37.0); MEAN CORPUSCULAR VOLUME 90 fL (80-100); MONOCYTES % (AUTO) 6.7 % (2.0-9.0); NEUTROPHILS # (AUTO) 9.2 K/uL (1.8-7.7); NEUTROPHILS % (AUTO) 62.9 % (40.0-70.0); PLATELET COUNT (AUTO) 250 K/uL (150-450); RED BLOOD CELL COUNT(AUTO) 3.53 MIL/uL (4.50-5.90); WHITE BLOOD COUNT (AUTO) 14.6 K/uL (4.5-11.0)
[2016-12-07 07:05] LABS: RBC MORPHOLOGY COMMENT ABNORMAL RBC MORPH
[2016-12-07 07:51] VITALS: BP 125/84
[2016-12-07] MEDS: OXYGEN THERAPY IH SCH ×2 (08:00→20:00)
[2016-12-07] MEDS: 0.9% SODIUM CHLORIDE 10 ML SYRINGE IVP SCH ×3 (08:18→23:06)
[2016-12-07] MEDS: PANTOPRAZOLE SODIUM 40 MG DR TABLET PO SCH (08:18)
[2016-12-07] MEDS: LISINOPRIL 5 MG TABLET PO SCH (08:19)
[2016-12-07] MEDS: BuPROPion HCL XL 150 MG ER TABLET PO SCH (08:19)
[2016-12-07] MEDS: DOCUSATE SODIUM 100 MG CAPSULE PO SCH ×2 (08:19→20:11)
[2016-12-07] MEDS: ENOXAPARIN SODIUM 30 MG/0.3 ML PF SYRINGE SQ SCH (08:19)
[2016-12-07] MEDS: PredniSONE 10 MG TABLET PO SCH (08:19)
[2016-12-07] MEDS: FLUoxetine HCL 20 MG CAPSULE PO SCH (08:19)
[2016-12-07] MEDS: CHOLECALCIFEROL (VIT D3) 1,000 UNITS TABLET PO SCH (08:19)
[2016-12-07] MEDS: FOLIC ACID 1 MG TABLET PO SCH (08:20)
[2016-12-07] MEDS: BUDESONIDE 0.5 MG/2 ML NEB SOLUTION NEB SCH ×2 (08:20→20:00)
[2016-12-07] MEDS: METOPROLOL TARTRATE 25 MG TABLET PO SCH ×2 (08:20→20:12)
[2016-12-07 15:11] VITALS: BP 98/67
[2016-12-07] MEDS ORDERED: 0.9% SODIUM CHLORIDE 5 ML NEB SOLUTION NEB ONE (19:25)
[2016-12-07] MEDS: ASPIRIN 325 MG EC TABLET PO SCH (20:11)
[2016-12-07] MEDS: FAMOTIDINE 20 MG TABLET PO SCH (20:11)
[2016-12-07] MEDS: GABAPENTIN 300 MG CAPSULE PO SCH (20:11)
[2016-12-07] MEDS: ROSUVASTATIN CALCIUM 10 MG TABLET PO SCH (20:12)
[2016-12-07] MEDS: SENNA 187 MG TABLET PO SCH (20:12)
[2016-12-07 20:19] VITALS: BP 118/74
[2016-12-07 23:15] VITALS: BP 116/77
[2016-12-08 07:16] VITALS: BP 119/67
[2016-12-08] MEDS: OXYGEN THERAPY IH SCH ×2 (07:22→18:58)
[2016-12-08] MEDS: 0.9% SODIUM CHLORIDE 10 ML SYRINGE IVP SCH ×3 (07:23→23:26)
[2016-12-08] MEDS: PANTOPRAZOLE SODIUM 40 MG DR TABLET PO SCH (08:00)
[2016-12-08] MEDS: METOPROLOL TARTRATE 25 MG TABLET PO SCH ×2 (08:00→19:59)
[2016-12-08] MEDS: LISINOPRIL 5 MG TABLET PO SCH (08:01)
[2016-12-08] MEDS: DOCUSATE SODIUM 100 MG CAPSULE PO SCH ×2 (08:01→19:59)
[2016-12-08] MEDS: FOLIC ACID 1 MG TABLET PO SCH (08:01)
[2016-12-08] MEDS: ENOXAPARIN SODIUM 30 MG/0.3 ML PF SYRINGE SQ SCH (08:01)
[2016-12-08] MEDS: FLUoxetine HCL 20 MG CAPSULE PO SCH (08:01)
[2016-12-08] MEDS: CHOLECALCIFEROL (VIT D3) 1,000 UNITS TABLET PO SCH (08:01)
[2016-12-08] MEDS: PredniSONE 10 MG TABLET PO SCH (08:01)
[2016-12-08] MEDS: BuPROPion HCL XL 150 MG ER TABLET PO SCH (08:01)
[2016-12-08] MEDS: BUDESONIDE 0.5 MG/2 ML NEB SOLUTION NEB SCH ×2 (10:00→18:54)
[2016-12-08 15:09] VITALS: BP 101/68
[2016-12-08] MEDS: SENNA 187 MG TABLET PO SCH (19:59)
[2016-12-08] MEDS: GABAPENTIN 300 MG CAPSULE PO SCH (19:59)
[2016-12-08] MEDS: ROSUVASTATIN CALCIUM 10 MG TABLET PO SCH (19:59)
[2016-12-08] MEDS: FAMOTIDINE 20 MG TABLET PO SCH (19:59)
[2016-12-08] MEDS: ASPIRIN 325 MG EC TABLET PO SCH (19:59)
[2016-12-08 20:30] VITALS: BP 107/67
[2016-12-08 23:48] VITALS: BP 118/63
[2016-12-09 07:04] VITALS: BP 105/72
[2016-12-09] MEDS: BuPROPion HCL XL 150 MG ER TABLET PO SCH (07:43)
[2016-12-09] MEDS: FLUoxetine HCL 20 MG CAPSULE PO SCH (07:43)
[2016-12-09] MEDS: CHOLECALCIFEROL (VIT D3) 1,000 UNITS TABLET PO SCH (07:43)
[2016-12-09] MEDS: ENOXAPARIN SODIUM 30 MG/0.3 ML PF SYRINGE SQ SCH (07:43)
[2016-12-09] MEDS: FOLIC ACID 1 MG TABLET PO SCH (07:43)
[2016-12-09] MEDS: 0.9% SODIUM CHLORIDE 10 ML SYRINGE IVP SCH ×3 (07:43→23:41)
[2016-12-09] MEDS: LISINOPRIL 5 MG TABLET PO SCH (07:43)
[2016-12-09] MEDS: DOCUSATE SODIUM 100 MG CAPSULE PO SCH ×2 (07:43→20:50)
[2016-12-09] MEDS: METOPROLOL TARTRATE 25 MG TABLET PO SCH ×2 (07:43→20:50)
[2016-12-09] MEDS: PANTOPRAZOLE SODIUM 40 MG DR TABLET PO SCH (07:43)
[2016-12-09] MEDS: PredniSONE 10 MG TABLET PO SCH (07:44)
[2016-12-09] MEDS: OXYGEN THERAPY IH SCH ×2 (07:44→20:48)
[2016-12-09] MEDS: BUDESONIDE 0.5 MG/2 ML NEB SOLUTION NEB SCH ×2 (09:24→20:14)
[2016-12-09 15:26] VITALS: BP 111/66
[2016-12-09] MEDS: ROSUVASTATIN CALCIUM 10 MG TABLET PO SCH (20:48)
[2016-12-09] MEDS: ASPIRIN 325 MG EC TABLET PO SCH (20:49)
[2016-12-09 20:50] VITALS: BP 117/64
[2016-12-09] MEDS: SENNA 187 MG TABLET PO SCH (20:50)
[2016-12-09] MEDS: FAMOTIDINE 20 MG TABLET PO SCH (20:50)
[2016-12-09] MEDS: GABAPENTIN 300 MG CAPSULE PO SCH (20:51)
[2016-12-10 00:04] VITALS: BP 115/68
[2016-12-10] MEDS: OXYGEN THERAPY IH SCH ×2 (08:00→20:00)
[2016-12-10] MEDS: ENOXAPARIN SODIUM 30 MG/0.3 ML PF SYRINGE SQ SCH (08:23)
[2016-12-10] MEDS: BuPROPion HCL XL 150 MG ER TABLET PO SCH (08:25)
[2016-12-10] MEDS: CHOLECALCIFEROL (VIT D3) 1,000 UNITS TABLET PO SCH (08:25)
[2016-12-10] MEDS: DOCUSATE SODIUM 100 MG CAPSULE PO SCH ×2 (08:25→20:31)
[2016-12-10] MEDS: FOLIC ACID 1 MG TABLET PO SCH (08:25)
[2016-12-10] MEDS: LISINOPRIL 5 MG TABLET PO SCH (08:25)
[2016-12-10] MEDS: METOPROLOL TARTRATE 25 MG TABLET PO SCH ×2 (08:25→20:35)
[2016-12-10] MEDS: FLUoxetine HCL 20 MG CAPSULE PO SCH (08:25)
[2016-12-10] MEDS: PredniSONE 10 MG TABLET PO SCH (08:25)
[2016-12-10] MEDS: PANTOPRAZOLE SODIUM 40 MG DR TABLET PO SCH (08:25)
[2016-12-10 08:28] VITALS: BP 130/70
[2016-12-10] MEDS: BUDESONIDE 0.5 MG/2 ML NEB SOLUTION NEB SCH ×2 (09:19→20:12)
[2016-12-10] MEDS: 0.9% SODIUM CHLORIDE 10 ML SYRINGE IVP SCH ×3 (14:10→23:14)
[2016-12-10 15:32] VITALS: BP 107/69
[2016-12-10] MEDS: FAMOTIDINE 20 MG TABLET PO SCH (20:31)
[2016-12-10] MEDS: GABAPENTIN 300 MG CAPSULE PO SCH (20:31)
[2016-12-10] MEDS: ASPIRIN 325 MG EC TABLET PO SCH (20:36)
[2016-12-10] MEDS: ROSUVASTATIN CALCIUM 10 MG TABLET PO SCH (20:36)
[2016-12-10] MEDS: SENNA 187 MG TABLET PO SCH (20:36)
[2016-12-10 20:42] VITALS: BP 111/74
[2016-12-10 23:20] VITALS: BP 112/66
[2016-12-11 08:00] VITALS: BP 127/85
[2016-12-11] MEDS: OXYGEN THERAPY IH SCH ×2 (08:00→20:00)
[2016-12-11] MEDS: PANTOPRAZOLE SODIUM 40 MG DR TABLET PO SCH (08:13)
[2016-12-11] MEDS: PredniSONE 10 MG TABLET PO SCH (08:13)
[2016-12-11] MEDS: METOPROLOL TARTRATE 25 MG TABLET PO SCH ×2 (08:14→21:40)
[2016-12-11] MEDS: DOCUSATE SODIUM 100 MG CAPSULE PO SCH ×2 (08:14→21:40)
[2016-12-11] MEDS: ENOXAPARIN SODIUM 30 MG/0.3 ML PF SYRINGE SQ SCH (08:14)
[2016-12-11] MEDS: FLUoxetine HCL 20 MG CAPSULE PO SCH (08:14)
[2016-12-11] MEDS: CHOLECALCIFEROL (VIT D3) 1,000 UNITS TABLET PO SCH (08:14)
[2016-12-11] MEDS: LISINOPRIL 5 MG TABLET PO SCH (08:14)
[2016-12-11] MEDS: FOLIC ACID 1 MG TABLET PO SCH (08:15)
[2016-12-11] MEDS: BuPROPion HCL XL 150 MG ER TABLET PO SCH (08:16)
[2016-12-11] MEDS: 0.9% SODIUM CHLORIDE 10 ML SYRINGE IVP SCH ×3 (09:33→23:47)
[2016-12-11] MEDS: BUDESONIDE 0.5 MG/2 ML NEB SOLUTION NEB SCH ×2 (09:35→21:18)
[2016-12-11 15:00] VITALS: BP 99/62
[2016-12-11 21:30] VITALS: BP 119/74
[2016-12-11] MEDS: ROSUVASTATIN CALCIUM 10 MG TABLET PO SCH (21:39)
[2016-12-11] MEDS: GABAPENTIN 300 MG CAPSULE PO SCH (21:40)
[2016-12-11] MEDS: FAMOTIDINE 20 MG TABLET PO SCH (21:40)
[2016-12-11] MEDS: SENNA 187 MG TABLET PO SCH (21:40)
[2016-12-11] MEDS: ASPIRIN 325 MG EC TABLET PO SCH (21:40)
[2016-12-12] VITALS: BP 111/76
[2016-12-12 07:28] VITALS: BP 105/59
[2016-12-12] MEDS: OXYGEN THERAPY IH SCH ×2 (08:00→20:00)
[2016-12-12] MEDS: PANTOPRAZOLE SODIUM 40 MG DR TABLET PO SCH (08:29)
[2016-12-12] MEDS: FOLIC ACID 1 MG TABLET PO SCH (08:29)
[2016-12-12] MEDS: FLUoxetine HCL 20 MG CAPSULE PO SCH (08:29)
[2016-12-12] MEDS: 0.9% SODIUM CHLORIDE 10 ML SYRINGE IVP SCH (08:29)
[2016-12-12] MEDS: LISINOPRIL 5 MG TABLET PO SCH (08:29)
[2016-12-12] MEDS: METOPROLOL TARTRATE 25 MG TABLET PO SCH ×2 (08:29→20:22)
[2016-12-12] MEDS: BuPROPion HCL XL 150 MG ER TABLET PO SCH (08:29)
[2016-12-12] MEDS: ENOXAPARIN SODIUM 30 MG/0.3 ML PF SYRINGE SQ SCH (08:29)
[2016-12-12] MEDS: DOCUSATE SODIUM 100 MG CAPSULE PO SCH ×2 (08:29→20:22)
[2016-12-12] MEDS: CHOLECALCIFEROL (VIT D3) 1,000 UNITS TABLET PO SCH (08:29)
[2016-12-12] MEDS: PredniSONE 10 MG TABLET PO SCH (08:30)
[2016-12-12] MEDS: BUDESONIDE 0.5 MG/2 ML NEB SOLUTION NEB SCH ×2 (09:16→22:43)
[2016-12-12 15:28] VITALS: BP 102/62
[2016-12-12 20:22] VITALS: BP 106/72
[2016-12-12] MEDS: ASPIRIN 325 MG EC TABLET PO SCH (20:22)
[2016-12-12] MEDS: GABAPENTIN 300 MG CAPSULE PO SCH (20:22)
[2016-12-12] MEDS: SENNA 187 MG TABLET PO SCH (20:22)
[2016-12-12] MEDS: ROSUVASTATIN CALCIUM 10 MG TABLET PO SCH (20:22)
[2016-12-12 23:30] VITALS: BP 123/71
[2016-12-13 07:10] VITALS: BP 113/77
[2016-12-13] MEDS: OXYGEN THERAPY IH SCH ×2 (08:00→20:20)
[2016-12-13] MEDS: ENOXAPARIN SODIUM 30 MG/0.3 ML PF SYRINGE SQ SCH (08:20)
[2016-12-13] MEDS: BuPROPion HCL XL 150 MG ER TABLET PO SCH (08:21)
[2016-12-13] MEDS: CHOLECALCIFEROL (VIT D3) 1,000 UNITS TABLET PO SCH (08:21)
[2016-12-13] MEDS: PANTOPRAZOLE SODIUM 40 MG DR TABLET PO SCH (08:21)
[2016-12-13] MEDS: METOPROLOL TARTRATE 25 MG TABLET PO SCH ×2 (08:21→20:26)
[2016-12-13] MEDS: DOCUSATE SODIUM 100 MG CAPSULE PO SCH ×2 (08:21→20:26)
[2016-12-13] MEDS: FOLIC ACID 1 MG TABLET PO SCH (08:21)
[2016-12-13] MEDS: FLUoxetine HCL 20 MG CAPSULE PO SCH (08:21)
[2016-12-13] MEDS: PredniSONE 10 MG TABLET PO SCH (08:21)
[2016-12-13] MEDS: LISINOPRIL 5 MG TABLET PO SCH (08:21)
[2016-12-13] MEDS: BUDESONIDE 0.5 MG/2 ML NEB SOLUTION NEB SCH ×2 (08:23→22:51)
[2016-12-13 15:03] VITALS: BP 102/67
[2016-12-13 20:20] VITALS: BP 104/65
[2016-12-13] MEDS: ASPIRIN 325 MG EC TABLET PO SCH (20:25)
[2016-12-13] MEDS: ROSUVASTATIN CALCIUM 10 MG TABLET PO SCH (20:26)
[2016-12-13] MEDS: GABAPENTIN 300 MG CAPSULE PO SCH (20:26)
[2016-12-13] MEDS: SENNA 187 MG TABLET PO SCH (20:26)
[2016-12-14 00:04] VITALS: BP 103/59
[2016-12-14] MEDS: BUDESONIDE 0.5 MG/2 ML NEB SOLUTION NEB SCH ×3 (07:29→21:08)
[2016-12-14 07:37] VITALS: BP 102/68
[2016-12-14] MEDS: OXYGEN THERAPY IH SCH ×2 (08:00→20:00)
[2016-12-14 08:07] VITALS: BP 91/64
[2016-12-14] MEDS: DOCUSATE SODIUM 100 MG CAPSULE PO SCH ×2 (08:11→20:07)
[2016-12-14] MEDS: PredniSONE 10 MG TABLET PO SCH (08:11)
[2016-12-14] MEDS: PANTOPRAZOLE SODIUM 40 MG DR TABLET PO SCH (08:12)
[2016-12-14] MEDS: CHOLECALCIFEROL (VIT D3) 1,000 UNITS TABLET PO SCH (08:12)
[2016-12-14] MEDS: FOLIC ACID 1 MG TABLET PO SCH (08:12)
[2016-12-14] MEDS: LISINOPRIL 5 MG TABLET PO SCH (08:12)
[2016-12-14] MEDS: FLUoxetine HCL 20 MG CAPSULE PO SCH (08:12)
[2016-12-14] MEDS: BuPROPion HCL XL 150 MG ER TABLET PO SCH (08:12)
[2016-12-14] MEDS: METOPROLOL TARTRATE 25 MG TABLET PO SCH ×2 (08:12→20:07)
[2016-12-14] MEDS: ENOXAPARIN SODIUM 30 MG/0.3 ML PF SYRINGE SQ SCH (08:13)
[2016-12-14 15:17] VITALS: BP 122/74
[2016-12-14] MEDS: ROSUVASTATIN CALCIUM 10 MG TABLET PO SCH (20:07)
[2016-12-14] MEDS: ASPIRIN 325 MG EC TABLET PO SCH (20:07)
[2016-12-14] MEDS: GABAPENTIN 300 MG CAPSULE PO SCH (20:07)
[2016-12-14] MEDS: SENNA 187 MG TABLET PO SCH (20:08)
[2016-12-14] MEDS ORDERED: 0.9% SODIUM CHLORIDE 5 ML NEB SOLUTION NEB ONE (20:54)
[2016-12-14 23:32] VITALS: BP 106/65
[2016-12-15 07:16] VITALS: BP 124/43
[2016-12-15] MEDS: BUDESONIDE 0.5 MG/2 ML NEB SOLUTION NEB SCH ×2 (07:17→21:03)
[2016-12-15] MEDS: OXYGEN THERAPY IH SCH ×2 (08:00→19:46)
[2016-12-15] MEDS: DOCUSATE SODIUM 100 MG CAPSULE PO SCH ×2 (08:26→20:34)
[2016-12-15] MEDS: PredniSONE 10 MG TABLET PO SCH (08:28)
[2016-12-15] MEDS: FOLIC ACID 1 MG TABLET PO SCH (08:30)
[2016-12-15] MEDS: METOPROLOL TARTRATE 25 MG TABLET PO SCH ×2 (08:30→20:34)
[2016-12-15] MEDS: PANTOPRAZOLE SODIUM 40 MG DR TABLET PO SCH (08:31)
[2016-12-15] MEDS: BuPROPion HCL XL 150 MG ER TABLET PO SCH (08:31)
[2016-12-15] MEDS: CHOLECALCIFEROL (VIT D3) 1,000 UNITS TABLET PO SCH (08:31)
[2016-12-15] MEDS: LISINOPRIL 5 MG TABLET PO SCH (08:31)
[2016-12-15] MEDS: ENOXAPARIN SODIUM 30 MG/0.3 ML PF SYRINGE SQ SCH (08:31)
[2016-12-15] MEDS: FLUoxetine HCL 20 MG CAPSULE PO SCH (08:32)
[2016-12-15 15:28] VITALS: BP 127/51
[2016-12-15 20:32] VITALS: BP 116/70
[2016-12-15] MEDS: SENNA 187 MG TABLET PO SCH (20:34)
[2016-12-15] MEDS: ROSUVASTATIN CALCIUM 10 MG TABLET PO SCH (20:34)
[2016-12-15] MEDS: GABAPENTIN 300 MG CAPSULE PO SCH (20:34)
[2016-12-15] MEDS: ASPIRIN 325 MG EC TABLET PO SCH (20:34)
[2016-12-15 23:32] VITALS: BP 118/73
[2016-12-16 07:52] VITALS: BP 114/69
[2016-12-16] MEDS: FLUoxetine HCL 20 MG CAPSULE PO SCH (08:14)
[2016-12-16] MEDS: LISINOPRIL 5 MG TABLET PO SCH (08:14)
[2016-12-16] MEDS: PANTOPRAZOLE SODIUM 40 MG DR TABLET PO SCH (08:14)
[2016-12-16] MEDS: METOPROLOL TARTRATE 25 MG TABLET PO SCH ×2 (08:14→20:05)
[2016-12-16] MEDS: DOCUSATE SODIUM 100 MG CAPSULE PO SCH ×2 (08:14→20:03)
[2016-12-16] MEDS: FOLIC ACID 1 MG TABLET PO SCH (08:15)
[2016-12-16] MEDS: ENOXAPARIN SODIUM 30 MG/0.3 ML PF SYRINGE SQ SCH (08:15)
[2016-12-16] MEDS: CHOLECALCIFEROL (VIT D3) 1,000 UNITS TABLET PO SCH (08:15)
[2016-12-16] MEDS: PredniSONE 20 MG TABLET PO SCH (08:15)
[2016-12-16] MEDS: OXYGEN THERAPY IH SCH ×2 (08:15→20:00)
[2016-12-16] MEDS: BuPROPion HCL XL 150 MG ER TABLET PO SCH (08:15)
[2016-12-16] MEDS: BUDESONIDE 0.5 MG/2 ML NEB SOLUTION NEB SCH ×2 (09:38→20:35)
[2016-12-16] MEDS ORDERED: 0.9% SODIUM CHLORIDE 5 ML NEB SOLUTION NEB ONE (09:38)
[2016-12-16 15:50] VITALS: BP 96/63
[2016-12-16 20:00] VITALS: BP 105/61
[2016-12-16] MEDS: ROSUVASTATIN CALCIUM 10 MG TABLET PO SCH (20:03)
[2016-12-16] MEDS: ASPIRIN 325 MG EC TABLET PO SCH (20:03)
[2016-12-16] MEDS: GABAPENTIN 300 MG CAPSULE PO SCH (20:03)
[2016-12-16] MEDS: SENNA 187 MG TABLET PO SCH (20:03)
[2016-12-17 06:00] VITALS: BP 96/60
[2016-12-17 07:15] VITALS: BP 94/64
[2016-12-17] MEDS: FOLIC ACID 1 MG TABLET PO SCH (08:34)
[2016-12-17] MEDS: PredniSONE 20 MG TABLET PO SCH (08:34)
[2016-12-17] MEDS: LISINOPRIL 5 MG TABLET PO SCH (08:34)
[2016-12-17] MEDS: OXYGEN THERAPY IH SCH ×3 (08:34→20:37)
[2016-12-17] MEDS: BuPROPion HCL XL 150 MG ER TABLET PO SCH (08:34)
[2016-12-17] MEDS: CHOLECALCIFEROL (VIT D3) 1,000 UNITS TABLET PO SCH (08:35)
[2016-12-17] MEDS: ENOXAPARIN SODIUM 30 MG/0.3 ML PF SYRINGE SQ SCH (08:35)
[2016-12-17] MEDS: DOCUSATE SODIUM 100 MG CAPSULE PO SCH ×2 (08:35→20:33)
[2016-12-17] MEDS: FLUoxetine HCL 20 MG CAPSULE PO SCH (08:35)
[2016-12-17] MEDS: METOPROLOL TARTRATE 25 MG TABLET PO SCH ×2 (08:35→20:34)
[2016-12-17] MEDS: PANTOPRAZOLE SODIUM 40 MG DR TABLET PO SCH (08:35)
[2016-12-17] MEDS: BUDESONIDE 0.5 MG/2 ML NEB SOLUTION NEB SCH ×2 (08:41→18:55)
[2016-12-17 15:19] VITALS: BP 93/62
[2016-12-17 20:30] VITALS: BP 108/78
[2016-12-17] MEDS: ASPIRIN 325 MG EC TABLET PO SCH (20:33)
[2016-12-17] MEDS: SENNA 187 MG TABLET PO SCH (20:33)
[2016-12-17] MEDS: GABAPENTIN 300 MG CAPSULE PO SCH (20:33)
[2016-12-17] MEDS: ROSUVASTATIN CALCIUM 10 MG TABLET PO SCH (20:34)
[2016-12-17 23:00] VITALS: BP 109/78
[2016-12-18 07:08] VITALS: BP 103/71
[2016-12-18] MEDS: BuPROPion HCL XL 150 MG ER TABLET PO SCH (07:53)
[2016-12-18] MEDS: ENOXAPARIN SODIUM 30 MG/0.3 ML PF SYRINGE SQ SCH (07:53)
[2016-12-18] MEDS: CHOLECALCIFEROL (VIT D3) 1,000 UNITS TABLET PO SCH (07:53)
[2016-12-18] MEDS: PredniSONE 20 MG TABLET PO SCH (07:53)
[2016-12-18] MEDS: DOCUSATE SODIUM 100 MG CAPSULE PO SCH ×2 (07:53→20:29)
[2016-12-18] MEDS: METOPROLOL TARTRATE 25 MG TABLET PO SCH ×2 (07:54→20:29)
[2016-12-18] MEDS: FLUoxetine HCL 20 MG CAPSULE PO SCH (07:54)
[2016-12-18] MEDS: FOLIC ACID 1 MG TABLET PO SCH (07:54)
[2016-12-18] MEDS: PANTOPRAZOLE SODIUM 40 MG DR TABLET PO SCH (07:54)
[2016-12-18] MEDS: LISINOPRIL 5 MG TABLET PO SCH (07:56)
[2016-12-18] MEDS: BUDESONIDE 0.5 MG/2 ML NEB SOLUTION NEB SCH ×2 (08:21→22:18)
[2016-12-18 15:52] VITALS: BP 104/52
[2016-12-18] MEDS: OXYGEN THERAPY IH SCH ×2 (20:00→20:28)
[2016-12-18 20:23] VITALS: BP 123/73
[2016-12-18] MEDS: ASPIRIN 325 MG EC TABLET PO SCH (20:29)
[2016-12-18] MEDS: ROSUVASTATIN CALCIUM 10 MG TABLET PO SCH (20:29)
[2016-12-18] MEDS: GABAPENTIN 300 MG CAPSULE PO SCH (20:29)
[2016-12-18] MEDS: SENNA 187 MG TABLET PO SCH (20:30)
[2016-12-18 23:10] VITALS: BP 122/84
[2016-12-19 06:58] LABS: BASOPHILS % (AUTO) 0.3 % (0.0-2.0); EOSINOPHILS % (AUTO) 1.1 % (1.0-6.0); HEMATOCRIT 34.6 % (41-53); HEMOGLOBIN 11.3 g/dL (13.5-17.5); LYMPHOCYTES # (AUTO) 3.8 K/uL (1.0-4.8); LYMPHOCYTES % (AUTO) 30.7 % (22.0-44.0); MEAN CORPUSCULAR HEMOGLOBIN 30.1 pg (26.0-34.0); MEAN CORPUSCULAR HGB CONC 32.7 G/dL (31.0-37.0); MEAN CORPUSCULAR VOLUME 92 fL (80-100); MONOCYTES # (AUTO) 0.8 K/uL (0.1-1.0); MONOCYTES % (AUTO) 6.7 % (2.0-9.0); NEUTROPHILS # (AUTO) 7.5 K/uL (1.8-7.7); NEUTROPHILS % (AUTO) 61.2 % (40.0-70.0); PLATELET COUNT (AUTO) 282 K/uL (150-450); RED BLOOD CELL COUNT(AUTO) 3.76 MIL/uL (4.50-5.90); WHITE BLOOD COUNT (AUTO) 12.2 K/uL (4.5-11.0)
[2016-12-19 07:10] LABS: ALANINE AMINOTRANSFERASE 27 U/L (12-78); ALBUMIN 3.1 g/dL (3.4-5.0); ANION GAP 8 mmol/L (8-16); ASPARTATE AMINOTRANSFERASE 11 U/L (15-37); BILIRUBIN,TOTAL 0.2 mg/dL (0.1-1.0); CALCIUM, TOTAL 8.9 mg/dL (8.8-10.5); CARBON DIOXIDE 32 mmol/L (22-29); CHLORIDE 104 mmol/L (98-107); GLOMERULAR FILTR. RATE CALC > 60 mL/min (>60); POTASSIUM 4.3 mmol/L (3.5-5.1); SODIUM SERUM 144 mmol/L (136-145); TOTAL PROTEIN, SERUM 5.7 g/dL (6.4-8.2); UREA NITROGEN, BLOOD 17 mg/dL (7-18)
[2016-12-19] MEDS: BUDESONIDE 0.5 MG/2 ML NEB SOLUTION NEB SCH ×2 (07:28→19:12)
[2016-12-19] MEDS: OXYGEN THERAPY IH SCH ×2 (08:00→19:09)
[2016-12-19 08:25] VITALS: BP 108/72
[2016-12-19] MEDS: FLUoxetine HCL 20 MG CAPSULE PO SCH (09:13)
[2016-12-19] MEDS: PANTOPRAZOLE SODIUM 40 MG DR TABLET PO SCH (09:13)
[2016-12-19] MEDS: ENOXAPARIN SODIUM 30 MG/0.3 ML PF SYRINGE SQ SCH (09:13)
[2016-12-19] MEDS: FOLIC ACID 1 MG TABLET PO SCH (09:14)
[2016-12-19] MEDS: DOCUSATE SODIUM 100 MG CAPSULE PO SCH ×2 (09:14→20:36)
[2016-12-19] MEDS: METOPROLOL TARTRATE 25 MG TABLET PO SCH ×2 (09:14→20:37)
[2016-12-19] MEDS: LISINOPRIL 5 MG TABLET PO SCH (09:14)
[2016-12-19] MEDS: CHOLECALCIFEROL (VIT D3) 1,000 UNITS TABLET PO SCH (09:14)
[2016-12-19] MEDS: BuPROPion HCL XL 150 MG ER TABLET PO SCH (09:14)
[2016-12-19] MEDS: PredniSONE 20 MG TABLET PO SCH (09:14)
[2016-12-19 09:52] LABS: RBC MORPHOLOGY COMMENT ABNORMAL RBC MORPH
[2016-12-19 15:30] VITALS: BP 95/64
[2016-12-19 20:30] VITALS: BP 106/61
[2016-12-19] MEDS: ROSUVASTATIN CALCIUM 10 MG TABLET PO SCH (20:36)
[2016-12-19] MEDS: SENNA 187 MG TABLET PO SCH (20:36)
[2016-12-19] MEDS: ASPIRIN 325 MG EC TABLET PO SCH (20:37)
[2016-12-19] MEDS: GABAPENTIN 300 MG CAPSULE PO SCH (20:37)
[2016-12-19 23:30] VITALS: BP 101/68
[2016-12-20 07:00] VITALS: BP 112/70
[2016-12-20] MEDS: OXYGEN THERAPY IH SCH (08:00)
[2016-12-20] MEDS: BUDESONIDE 0.5 MG/2 ML NEB SOLUTION NEB SCH ×2 (08:21→20:06)
[2016-12-20] MEDS: METOPROLOL TARTRATE 25 MG TABLET PO SCH ×2 (08:24→20:38)
[2016-12-20] MEDS: FOLIC ACID 1 MG TABLET PO SCH (08:24)
[2016-12-20] MEDS: BuPROPion HCL XL 150 MG ER TABLET PO SCH (08:24)
[2016-12-20] MEDS: LISINOPRIL 5 MG TABLET PO SCH (08:24)
[2016-12-20] MEDS: ENOXAPARIN SODIUM 30 MG/0.3 ML PF SYRINGE SQ SCH (08:24)
[2016-12-20] MEDS: FLUoxetine HCL 20 MG CAPSULE PO SCH (08:24)
[2016-12-20] MEDS: PANTOPRAZOLE SODIUM 40 MG DR TABLET PO SCH (08:24)
[2016-12-20] MEDS: CHOLECALCIFEROL (VIT D3) 1,000 UNITS TABLET PO SCH (08:24)
[2016-12-20] MEDS: DOCUSATE SODIUM 100 MG CAPSULE PO SCH ×2 (08:24→20:38)
[2016-12-20] MEDS: PredniSONE 20 MG TABLET PO SCH (08:24)
[2016-12-20 15:14] VITALS: BP 96/66
[2016-12-20 20:36] VITALS: BP 106/58
[2016-12-20] MEDS: ROSUVASTATIN CALCIUM 10 MG TABLET PO SCH (20:38)
[2016-12-20] MEDS: GABAPENTIN 300 MG CAPSULE PO SCH (20:38)
[2016-12-20] MEDS: ASPIRIN 325 MG EC TABLET PO SCH (20:38)
[2016-12-20] MEDS: SENNA 187 MG TABLET PO SCH (20:38)
[2016-12-20 23:47] VITALS: BP 99/66
[2016-12-21 07:15] VITALS: BP 125/78
[2016-12-21] MEDS: BUDESONIDE 0.5 MG/2 ML NEB SOLUTION NEB SCH ×2 (07:22→20:14)
[2016-12-21] MEDS: CHOLECALCIFEROL (VIT D3) 1,000 UNITS TABLET PO SCH (07:57)
[2016-12-21] MEDS: PANTOPRAZOLE SODIUM 40 MG DR TABLET PO SCH (07:57)
[2016-12-21] MEDS: ENOXAPARIN SODIUM 30 MG/0.3 ML PF SYRINGE SQ SCH (07:57)
[2016-12-21] MEDS: DOCUSATE SODIUM 100 MG CAPSULE PO SCH ×2 (07:57→20:21)
[2016-12-21] MEDS: FLUoxetine HCL 20 MG CAPSULE PO SCH (07:57)
[2016-12-21] MEDS: PredniSONE 10 MG TABLET PO SCH (07:57)
[2016-12-21] MEDS: METOPROLOL TARTRATE 25 MG TABLET PO SCH ×2 (07:57→20:21)
[2016-12-21] MEDS: FOLIC ACID 1 MG TABLET PO SCH (07:57)
[2016-12-21] MEDS: BuPROPion HCL XL 150 MG ER TABLET PO SCH (07:57)
[2016-12-21] MEDS: LISINOPRIL 5 MG TABLET PO SCH (07:58)
[2016-12-21 15:05] VITALS: BP 109/67
[2016-12-21 20:20] VITALS: BP 107/67
[2016-12-21] MEDS: GABAPENTIN 300 MG CAPSULE PO SCH (20:21)
[2016-12-21] MEDS: ASPIRIN 325 MG EC TABLET PO SCH (20:21)
[2016-12-21] MEDS: ROSUVASTATIN CALCIUM 10 MG TABLET PO SCH (20:21)
[2016-12-21] MEDS: SENNA 187 MG TABLET PO SCH (20:21)
[2016-12-21 23:48] VITALS: BP 99/74
[2016-12-22 07:00] VITALS: BP 108/73
[2016-12-22] MEDS: LISINOPRIL 5 MG TABLET PO SCH (08:37)
[2016-12-22] MEDS: ENOXAPARIN SODIUM 30 MG/0.3 ML PF SYRINGE SQ SCH (08:37)
[2016-12-22] MEDS: CHOLECALCIFEROL (VIT D3) 1,000 UNITS TABLET PO SCH (08:37)
[2016-12-22] MEDS: METOPROLOL TARTRATE 25 MG TABLET PO SCH ×2 (08:37→21:03)
[2016-12-22] MEDS: FOLIC ACID 1 MG TABLET PO SCH (08:37)
[2016-12-22] MEDS: FLUoxetine HCL 20 MG CAPSULE PO SCH (08:37)
[2016-12-22] MEDS: DOCUSATE SODIUM 100 MG CAPSULE PO SCH ×2 (08:37→21:02)
[2016-12-22] MEDS: PredniSONE 10 MG TABLET PO SCH (08:37)
[2016-12-22] MEDS: BuPROPion HCL XL 150 MG ER TABLET PO SCH (08:37)
[2016-12-22] MEDS: PANTOPRAZOLE SODIUM 40 MG DR TABLET PO SCH (08:37)
[2016-12-22] MEDS: BUDESONIDE 0.5 MG/2 ML NEB SOLUTION NEB SCH ×2 (09:32→21:06)
[2016-12-22 15:00] VITALS: BP 95/66
[2016-12-22] MEDS: ASPIRIN 325 MG EC TABLET PO SCH (21:02)
[2016-12-22] MEDS: SENNA 187 MG TABLET PO SCH (21:03)
[2016-12-22] MEDS: GABAPENTIN 300 MG CAPSULE PO SCH (21:03)
[2016-12-22] MEDS: ROSUVASTATIN CALCIUM 10 MG TABLET PO SCH (21:03)
[2016-12-22 22:10] VITALS: BP 113/66
[2016-12-22 23:00] VITALS: BP 100/68
[2016-12-23 08:00] VITALS: BP 105/65
[2016-12-23] MEDS: METOPROLOL TARTRATE 25 MG TABLET PO SCH ×2 (08:28→20:20)
[2016-12-23] MEDS: ENOXAPARIN SODIUM 30 MG/0.3 ML PF SYRINGE SQ SCH (08:28)
[2016-12-23] MEDS: BuPROPion HCL XL 150 MG ER TABLET PO SCH (08:28)
[2016-12-23] MEDS: FLUoxetine HCL 20 MG CAPSULE PO SCH (08:29)
[2016-12-23] MEDS: LISINOPRIL 5 MG TABLET PO SCH (08:29)
[2016-12-23] MEDS: PredniSONE 10 MG TABLET PO SCH (08:29)
[2016-12-23] MEDS: PANTOPRAZOLE SODIUM 40 MG DR TABLET PO SCH (08:30)
[2016-12-23] MEDS: CHOLECALCIFEROL (VIT D3) 1,000 UNITS TABLET PO SCH (08:30)
[2016-12-23] MEDS: FOLIC ACID 1 MG TABLET PO SCH (08:30)
[2016-12-23] MEDS: DOCUSATE SODIUM 100 MG CAPSULE PO SCH ×2 (08:30→20:20)
[2016-12-23] MEDS: BUDESONIDE 0.5 MG/2 ML NEB SOLUTION NEB SCH ×2 (09:59→21:24)
[2016-12-23 16:45] VITALS: BP 123/57
[2016-12-23] MEDS: SENNA 187 MG TABLET PO SCH (20:20)
[2016-12-23] MEDS: GABAPENTIN 300 MG CAPSULE PO SCH (20:20)
[2016-12-23] MEDS: ROSUVASTATIN CALCIUM 10 MG TABLET PO SCH (20:20)
[2016-12-23] MEDS: ASPIRIN 325 MG EC TABLET PO SCH (20:20)
[2016-12-23 20:21] VITALS: BP 108/67
[2016-12-23 23:24] VITALS: BP 112/81
[2016-12-24 07:49] VITALS: BP 111/89
[2016-12-24] MEDS: ENOXAPARIN SODIUM 30 MG/0.3 ML PF SYRINGE SQ SCH (07:52)
[2016-12-24] MEDS: METOPROLOL TARTRATE 25 MG TABLET PO SCH ×2 (07:52→21:00)
[2016-12-24] MEDS: PANTOPRAZOLE SODIUM 40 MG DR TABLET PO SCH (07:52)
[2016-12-24] MEDS: FLUoxetine HCL 20 MG CAPSULE PO SCH (07:52)
[2016-12-24] MEDS: CHOLECALCIFEROL (VIT D3) 1,000 UNITS TABLET PO SCH (07:53)
[2016-12-24] MEDS: LISINOPRIL 5 MG TABLET PO SCH (07:53)
[2016-12-24] MEDS: BuPROPion HCL XL 150 MG ER TABLET PO SCH (07:53)
[2016-12-24] MEDS: PredniSONE 10 MG TABLET PO SCH (07:53)
[2016-12-24] MEDS: DOCUSATE SODIUM 100 MG CAPSULE PO SCH ×2 (07:53→20:44)
[2016-12-24] MEDS: FOLIC ACID 1 MG TABLET PO SCH (07:53)
[2016-12-24] MEDS: BUDESONIDE 0.5 MG/2 ML NEB SOLUTION NEB SCH ×2 (09:45→21:08)
[2016-12-24 15:41] VITALS: BP 98/60
[2016-12-24 20:40] VITALS: BP 98/61
[2016-12-24] MEDS: ROSUVASTATIN CALCIUM 10 MG TABLET PO SCH (20:44)
[2016-12-24] MEDS: SENNA 187 MG TABLET PO SCH (20:44)
[2016-12-24] MEDS: GABAPENTIN 300 MG CAPSULE PO SCH (20:44)
[2016-12-24] MEDS: ASPIRIN 325 MG EC TABLET PO SCH (20:44)
[2016-12-24 23:40] VITALS: BP 98/71
[2016-12-25 07:10] VITALS: BP 118/76
[2016-12-25] MEDS: CHOLECALCIFEROL (VIT D3) 1,000 UNITS TABLET PO SCH (08:16)
[2016-12-25] MEDS: ENOXAPARIN SODIUM 30 MG/0.3 ML PF SYRINGE SQ SCH (08:16)
[2016-12-25] MEDS: FLUoxetine HCL 20 MG CAPSULE PO SCH (08:16)
[2016-12-25] MEDS: METOPROLOL TARTRATE 25 MG TABLET PO SCH ×2 (08:16→20:39)
[2016-12-25] MEDS: BuPROPion HCL XL 150 MG ER TABLET PO SCH (08:17)
[2016-12-25] MEDS: DOCUSATE SODIUM 100 MG CAPSULE PO SCH ×2 (08:17→20:39)
[2016-12-25] MEDS: FOLIC ACID 1 MG TABLET PO SCH (08:17)
[2016-12-25] MEDS: PANTOPRAZOLE SODIUM 40 MG DR TABLET PO SCH (08:17)
[2016-12-25] MEDS: PredniSONE 10 MG TABLET PO SCH (08:19)
[2016-12-25] MEDS: LISINOPRIL 5 MG TABLET PO SCH (08:20)
[2016-12-25] MEDS: BUDESONIDE 0.5 MG/2 ML NEB SOLUTION NEB SCH ×2 (10:00→20:51)
[2016-12-25 15:00] VITALS: BP 100/74
[2016-12-25 20:38] VITALS: BP 108/68
[2016-12-25] MEDS: GABAPENTIN 300 MG CAPSULE PO SCH (20:38)
[2016-12-25] MEDS: ROSUVASTATIN CALCIUM 10 MG TABLET PO SCH (20:38)
[2016-12-25] MEDS: ASPIRIN 325 MG EC TABLET PO SCH (20:38)
[2016-12-25] MEDS: SENNA 187 MG TABLET PO SCH (20:39)
[2016-12-25 23:59] VITALS: BP 104/63
[2016-12-26 06:40] LABS: BASOPHILS % (AUTO) 0.4 % (0.0-2.0); HEMATOCRIT 35.6 % (41-53); HEMOGLOBIN 11.7 g/dL (13.5-17.5); LYMPHOCYTES # (AUTO) 3.6 K/uL (1.0-4.8); MEAN CORPUSCULAR HEMOGLOBIN 30.6 pg (26.0-34.0); MEAN CORPUSCULAR VOLUME 93 fL (80-100); MONOCYTES # (AUTO) 0.9 K/uL (0.1-1.0); MONOCYTES % (AUTO) 8.5 % (2.0-9.0); NEUTROPHILS % (AUTO) 56.1 % (40.0-70.0); PLATELET COUNT (AUTO) 295 K/uL (150-450); RED BLOOD CELL COUNT(AUTO) 3.83 MIL/uL (4.50-5.90); RED CELL DISTRIBUTION WIDTH 20.9 % (11.5-14.5); WHITE BLOOD COUNT (AUTO) 10.7 K/uL (4.5-11.0)
[2016-12-26 06:53] LABS: ANION GAP 6 mmol/L (8-16); CARBON DIOXIDE 33 mmol/L (22-29); CHLORIDE 106 mmol/L (98-107); CREATININE 0.71 mg/dL (0.60-1.30); GLOMERULAR FILTR. RATE CALC > 60 mL/min (>60); POTASSIUM 4.5 mmol/L (3.5-5.1); SODIUM SERUM 145 mmol/L (136-145); UREA NITROGEN, BLOOD 24 mg/dL (7-18)
[2016-12-26 07:00] VITALS: BP 112/71
[2016-12-26] MEDS: BUDESONIDE 0.5 MG/2 ML NEB SOLUTION NEB SCH ×2 (08:04→19:52)
[2016-12-26 08:20] LABS: RBC MORPHOLOGY COMMENT ABNORMAL RBC MORPH
[2016-12-26] MEDS: PANTOPRAZOLE SODIUM 40 MG DR TABLET PO SCH (08:28)
[2016-12-26] MEDS: BuPROPion HCL XL 150 MG ER TABLET PO SCH (08:28)
[2016-12-26] MEDS: LISINOPRIL 5 MG TABLET PO SCH (08:28)
[2016-12-26] MEDS: FOLIC ACID 1 MG TABLET PO SCH (08:28)
[2016-12-26] MEDS: DOCUSATE SODIUM 100 MG CAPSULE PO SCH ×2 (08:28→20:50)
[2016-12-26] MEDS: CHOLECALCIFEROL (VIT D3) 1,000 UNITS TABLET PO SCH (08:28)
[2016-12-26] MEDS: PredniSONE 10 MG TABLET PO SCH (08:28)
[2016-12-26] MEDS: FLUoxetine HCL 20 MG CAPSULE PO SCH (08:29)
[2016-12-26] MEDS: METOPROLOL TARTRATE 25 MG TABLET PO SCH ×2 (08:29→20:49)
[2016-12-26] MEDS: ENOXAPARIN SODIUM 30 MG/0.3 ML PF SYRINGE SQ SCH (08:29)
[2016-12-26 15:40] VITALS: BP 98/75
[2016-12-26 20:28] VITALS: BP 101/59
[2016-12-26] MEDS: SENNA 187 MG TABLET PO SCH (20:49)
[2016-12-26] MEDS: ROSUVASTATIN CALCIUM 10 MG TABLET PO SCH (20:49)
[2016-12-26] MEDS: GABAPENTIN 300 MG CAPSULE PO SCH (20:49)
[2016-12-26] MEDS: ASPIRIN 325 MG EC TABLET PO SCH (20:50)
[2016-12-26 23:42] VITALS: BP 98/66
[2016-12-27 08:08] VITALS: BP 100/60
[2016-12-27] MEDS: PredniSONE 10 MG TABLET PO SCH (08:14)
[2016-12-27] MEDS: DOCUSATE SODIUM 100 MG CAPSULE PO SCH ×2 (08:14→20:30)
[2016-12-27] MEDS: CHOLECALCIFEROL (VIT D3) 1,000 UNITS TABLET PO SCH (08:15)
[2016-12-27] MEDS: METOPROLOL TARTRATE 25 MG TABLET PO SCH ×2 (08:15→20:30)
[2016-12-27] MEDS: FLUoxetine HCL 20 MG CAPSULE PO SCH (08:15)
[2016-12-27] MEDS: FOLIC ACID 1 MG TABLET PO SCH (08:15)
[2016-12-27] MEDS: BuPROPion HCL XL 150 MG ER TABLET PO SCH (08:16)
[2016-12-27] MEDS: LISINOPRIL 5 MG TABLET PO SCH (08:16)
[2016-12-27] MEDS: ENOXAPARIN SODIUM 30 MG/0.3 ML PF SYRINGE SQ SCH (08:16)
[2016-12-27] MEDS: PANTOPRAZOLE SODIUM 40 MG DR TABLET PO SCH (08:17)
[2016-12-27] MEDS: BUDESONIDE 0.5 MG/2 ML NEB SOLUTION NEB SCH ×2 (09:21→19:53)
[2016-12-27 15:38] VITALS: BP 97/63
[2016-12-27 20:24] VITALS: BP 97/60
[2016-12-27] MEDS: SENNA 187 MG TABLET PO SCH (20:30)
[2016-12-27] MEDS: ROSUVASTATIN CALCIUM 10 MG TABLET PO SCH (20:30)
[2016-12-27] MEDS: GABAPENTIN 300 MG CAPSULE PO SCH (20:30)
[2016-12-27] MEDS: ASPIRIN 325 MG EC TABLET PO SCH (20:30)
[2016-12-27 23:46] VITALS: BP 97/72
[2016-12-28 06:42] LABS: BASOPHILS % (AUTO) 0.3 % (0.0-2.0); EOSINOPHILS % (AUTO) 1.1 % (1.0-6.0); HEMOGLOBIN 11.8 g/dL (13.5-17.5); LYMPHOCYTES # (AUTO) 3.8 K/uL (1.0-4.8); MEAN CORPUSCULAR HEMOGLOBIN 30.5 pg (26.0-34.0); MEAN CORPUSCULAR HGB CONC 32.9 G/dL (31.0-37.0); MEAN CORPUSCULAR VOLUME 93 fL (80-100); MONOCYTES # (AUTO) 0.9 K/uL (0.1-1.0); MONOCYTES % (AUTO) 7.8 % (2.0-9.0); NEUTROPHILS # (AUTO) 7.1 K/uL (1.8-7.7); NEUTROPHILS % (AUTO) 58.8 % (40.0-70.0); PLATELET COUNT (AUTO) 294 K/uL (150-450); RED BLOOD CELL COUNT(AUTO) 3.87 MIL/uL (4.50-5.90); RED CELL DISTRIBUTION WIDTH 20.7 % (11.5-14.5)
[2016-12-28 06:56] LABS: RBC MORPHOLOGY COMMENT ABNORMAL RBC MORPH
[2016-12-28 07:22] VITALS: BP 106/71
[2016-12-28] MEDS: FOLIC ACID 1 MG TABLET PO SCH (08:05)
[2016-12-28] MEDS: LISINOPRIL 5 MG TABLET PO SCH (08:05)
[2016-12-28] MEDS: PredniSONE 10 MG TABLET PO SCH (08:05)
[2016-12-28] MEDS: DOCUSATE SODIUM 100 MG CAPSULE PO SCH ×2 (08:05→20:15)
[2016-12-28] MEDS: METOPROLOL TARTRATE 25 MG TABLET PO SCH ×2 (08:05→20:15)
[2016-12-28] MEDS: PANTOPRAZOLE SODIUM 40 MG DR TABLET PO SCH (08:05)
[2016-12-28] MEDS: BuPROPion HCL XL 150 MG ER TABLET PO SCH (08:05)
[2016-12-28] MEDS: FLUoxetine HCL 20 MG CAPSULE PO SCH (08:05)
[2016-12-28] MEDS: CHOLECALCIFEROL (VIT D3) 1,000 UNITS TABLET PO SCH (08:05)
[2016-12-28] MEDS: ENOXAPARIN SODIUM 30 MG/0.3 ML PF SYRINGE SQ SCH (08:06)
[2016-12-28] MEDS: BUDESONIDE 0.5 MG/2 ML NEB SOLUTION NEB SCH ×2 (08:50→21:19)
[2016-12-28 16:44] VITALS: BP 96/67
[2016-12-28 20:13] VITALS: BP 107/61
[2016-12-28] MEDS: ROSUVASTATIN CALCIUM 10 MG TABLET PO SCH (20:14)
[2016-12-28] MEDS: GABAPENTIN 300 MG CAPSULE PO SCH (20:15)
[2016-12-28] MEDS: ASPIRIN 325 MG EC TABLET PO SCH (20:15)
[2016-12-28] MEDS: SENNA 187 MG TABLET PO SCH (20:15)
[2016-12-28 23:07] VITALS: BP 110/75
[2016-12-29 07:22] VITALS: BP 107/74
[2016-12-29] MEDS: BUDESONIDE 0.5 MG/2 ML NEB SOLUTION NEB SCH (08:34)
[2016-12-29] MEDS: PANTOPRAZOLE SODIUM 40 MG DR TABLET PO SCH (08:42)
[2016-12-29] MEDS: CHOLECALCIFEROL (VIT D3) 1,000 UNITS TABLET PO SCH (08:42)
[2016-12-29] MEDS: ENOXAPARIN SODIUM 30 MG/0.3 ML PF SYRINGE SQ SCH (08:42)
[2016-12-29] MEDS: METOPROLOL TARTRATE 25 MG TABLET PO SCH (08:43)
[2016-12-29] MEDS: FOLIC ACID 1 MG TABLET PO SCH (08:44)
[2016-12-29] MEDS: BuPROPion HCL XL 150 MG ER TABLET PO SCH (08:44)
[2016-12-29] MEDS: FLUoxetine HCL 20 MG CAPSULE PO SCH (08:44)
[2016-12-29] MEDS: DOCUSATE SODIUM 100 MG CAPSULE PO SCH (08:45)
[2016-12-29] MEDS: LISINOPRIL 5 MG TABLET PO SCH (08:45)
[2016-12-29] MEDS: PredniSONE 10 MG TABLET PO SCH (08:45)
[2016-12-29] MEDS ORDERED: PRED10 PO (10:22)
[2016-12-29] MEDS ORDERED: PRED5 PO (10:22)
[2016-12-29] MEDS ORDERED: BUDE90AE IH ×2 (11:37→11:46)
[2016-12-29] MEDS ORDERED: IPRAHFA IH ×2 (11:38→11:39)
[2016-12-29] MEDS ORDERED: ALBU8HFA IH (11:43)
[2016-12-29] MEDS ORDERED: PANT40TA25 PO (11:44)
[2016-12-31] MEDS ORDERED: PredniSONE 5 MG TABLET PO SCH (09:00)
== END 2016-12-29 12:45 | disposition home or self-care (01) | DRG 189 ==
LOC: 2WR 17:15
PROVIDERS: ADMIT Physical Medicine & Rehabilitation
DX: J96.01 Acute respiratory failure with hypoxia (principal); E43 Unspecified severe protein-calorie malnutrition; I50.21 Acute systolic (congestive) heart failure; J84.116 Cryptogenic organizing pneumonia; T79.7XXA Traumatic subcutaneous emphysema, initial encounter; J44.9 Chronic obstructive pulmonary disease, unspecified; J93.9 Pneumothorax, unspecified; J94.2 Hemothorax; I11.0 Hypertensive heart disease with heart failure; E78.2 Mixed hyperlipidemia; R26.9 Unspecified abnormalities of gait and mobility; Z87.891 Personal history of nicotine dependence; D64.9 Anemia, unspecified; E55.9 Vitamin D deficiency, unspecified; F32.9 Major depressive disorder, single episode, unspecified; I25.10 Atherosclerotic heart disease of native coronary artery without angina pectoris; K59.00 Constipation, unspecified; M48.02 Spinal stenosis, cervical region; M48.06 Spinal stenosis, lumbar region; T38.0X5A Adverse effect of glucocorticoids and synthetic analogues, initial encounter; Z79.52 Long term (current) use of systemic steroids; Z82.49 Family history of ischemic heart disease and other diseases of the circulatory system; Z86.73 Personal history of transient ischemic attack (TIA), and cerebral infarction without residual deficits; Z87.01 Personal history of pneumonia (recurrent); Z95.5 Presence of coronary angioplasty implant and graft; G51.0 Bell's palsy; Z68.25 Body mass index [BMI] 25.0-25.9, adult
CPT/HCPCS: 71020; 87081; 92507; 92523; 94640; 97110; 97112; 97116; 97150; 97163; 97167; 97530; 97535; 97537; 99366; J1650